=== PATIENT | female | born 1935 | race Caucasian/White ===

== ENCOUNTER → 2018-11-29 12:11 | Outpatient (CLI) | payer MEDICARE, SELFPAY ==
--- NOTE | 2018-11-29 12:14 | US_ITS ---
STUDY: ULTRASOUND OF THE FEMALE PELVIS - COMPLETE REASON FOR EXAM: Female, 83 years old. LMP: TECHNIQUE: Transabdominal and Transvaginal TECHNICAL QUALITY: Adequate. COMPARISON: None. FINDINGS: The uterus is anteverted and is in a midline position. The uterus measures 6.9 x 4.2 x 3.0 cm. Normal uterine cervix. The endometrium measures 2.7 mm in thickness, and is hyperechoic. There is no demonstrated endometrial mass. There are myometrial calcifications. I.U.D. - The patient does not have an I.U.D. Ovaries are not identified. There is NO free fluid. US/Pelvic (Non ) IMPRESSION: Normal endometrium. There is NO fluid. There are scattered myometrial calcifications. There is NO discrete mass. The ovaries are not identified. There is NO free pelvic fluid. Electronically Signed: Keyur Montes MD at 7:43 EST , Service support ,
--- NOTE | 2018-11-29 12:15 | US_ITS ---
STUDY: ULTRASOUND OF THE FEMALE PELVIS - COMPLETE REASON FOR EXAM: Female, 83 years old. LMP: TECHNIQUE: Transabdominal and Transvaginal TECHNICAL QUALITY: Adequate. COMPARISON: None. FINDINGS: The uterus is anteverted and is in a midline position. The uterus measures 6.9 x 4.2 x 3.0 cm. Normal uterine cervix. The endometrium measures 2.7 mm in thickness, and is hyperechoic. There is no demonstrated endometrial mass. There are myometrial calcifications. I.U.D. - The patient does not have an I.U.D. Ovaries are not identified. There is NO free fluid. US/Transvaginal Non- IMPRESSION: Normal endometrium. There is NO fluid. There are scattered myometrial calcifications. There is NO discrete mass. The ovaries are not identified. There is NO free pelvic fluid. Electronically Signed: Keyur Montes MD at 7:43 EST , Service support ,
== END ==
PROVIDERS: Family Provider Internal Medicine; PCP Internal Medicine; Referring Provider Urology; Visit Provider Urology
DX: N95.0 Postmenopausal bleeding (principal)
CPT/HCPCS: 76830; 76856

== ENCOUNTER → 2019-03-30 09:03 | Outpatient (CLI) | payer SELFPAY, MEDICARE ==
[2017-08-12 05:45] VITALS: BMI 29.9
[2019-03-28 10:08] LABS: Mucous, Urine 0 SEEN /hpf (<or=2+); Red Blood Cells-Urine 0 SEEN /hpf (0-5)
[2019-03-28 10:33] LABS: Hemoglobin 14.1 g/dl (12.0-15.0); Mean Corp Hgb Conc 33.6 g/gl (32-36); Mean Corpuscular Hgb 29.6 pg (27.0-32.0); Mean Corpuscular Volume 88.1 fL (81-99); Mean Platelet Vol. 8.5 fl (6.2-12.0); Platelet Count 234 K/mm3 (150-450); RBC Distribution Width SD 40.7 fl (35.1-43.9); Red Blood Count 4.77 M/mm3 (4.2-5.4); White Blood Count 6.4 K/mm3 (4.4-11.0)
[2019-03-28 10:40] LABS: Scan Indicated on CBC? Y/N NO
[2019-03-28 10:47] LABS: Color, Urine Yellow (Yellow); Glucose, Dipstick Normal (Normal); Ketone-Dipstick Negative (Negative); Leukocyte Esterase-Dipstick 100 /ul (Negative); Nitrite-Dipstick Negative (Negative); Occult Blood-Urine Negative /ul (Negative); Protein-Dipstick 15 mg/dl (Negative); Urine Clarity Sl. Cloudy (Clear); Urine Urobilinogen Normal (Normal); Urine pH 6.5 (5.0 - 8.0)
[2019-03-28 10:49] LABS: Urine Bilirubin Dipstick 1 mg/dL (Negative)
[2019-03-28 10:53] LABS: Squamous Epithelial Cells - UA 0-5 SEEN /hpf (5-10)
[2019-03-28 10:54] LABS: ALB/GLOB Ratio 1.1 RATIO (0.9-2.4); AST(SGOT) 17 U/L (15-37); Alanine Aminotransfer ALT/SGPT 18 U/L (13-56); Albumin, Serum 3.8 g/dL (3.2-5.0); Alkaline Phosphatase 87 U/L (45-117); Anion Gap 4 (5-15); BUN 15 mg/dL (7-18); BUN/Creat Ratio 15.1 RATIO (10-20); Bacteria 1+ /hpf (None Seen); Calcium,Total 8.6 mg/dL (8.5-10.1); Chloride 103 mmol/L (98-107); Cholesterol 210 mg/dL (200); EST Glomerular Filtration Rate 57 mL/min (>60); Est Glom Filt Rate - Afr Amer 69 mL/min (>60); Globulin 3.5 g/dL (2.2-4.2); Glucose 93 mg/dL (74-106); High Density Lipoprotein 58 mg/dL; Protein, Total 7.3 g/dL (6.4-8.2); Sodium Level 137 mmol/L (136-145); Thyroid Stim Hormone (TSH) 3.13 uIU/mL (0.358-3.74); Triglycerides 90 mg/dL; Very Low Density Lipoprotein 18 mg/dL (5-40); White Blood Cells 10-25 SEEN /hpf (0-5)
[2019-03-28 11:09] LABS: Hemoglobin A1c 5.5 % (4.2-6.3)
[2019-03-28 11:16] LABS: Homocysteine 11.5 umol/L (3.2-10.7)
--- NOTE | 2019-03-30 09:15 | EKG12_ITS ---
Test Reason : EXEC PHYS Blood Pressure : / mmHG Vent. Rate : 063 BPM Atrial Rate : 063 BPM P-R Int : 152 ms QRS Dur : 098 ms QT Int : 416 ms P-R-T Axes : 064 -24 -30 degrees QTc Int : 425 ms Normal sinus rhythm with sinus arrhythmia Nonspecific ST and T wave abnormality Abnormal ECG Confirmed by BETTY CARRILLO, CODEY ([id number]), editorial director RAHEEL BRUNNER ([id number]) on 04/03/2019 1:45:46 PM Referred By: Melvi Poole Confirmed By:CODEY HERNÁNDEZ MD
--- NOTE | 2019-03-30 19:36 | BFS_ITS ---
Reason For Study: Screening Carotid Duplex Ultrasound Abdominal Aorta The right maximum ICA velocity is 94.3/36.9 cm/s. The maximal outside diameter of the proximal aorta The left maximum ICA velocity is 121.4/44.5 cm/s. measures 2.0 x 2.05 cm in the cross-sectional The right ECA velocity is less than 125 cm/s. axis. The left ECA velocity is less than 125 cm/s. The maximal outside diameter of the proximal aorta There is insignificant plaque formation noted on measures 2.02 cm in the longitudinal axis. the right side. There is insignificant plaque formation noted on the left side. Interpretation Summary Normal carotid artery screening (0 to 15% narrowing). Normal aortic ultrasound exam. Performed By: Tessa Fraser RVT
[2019-04-06 12:25] LABS: HPV Reflexed? NOT INDICATED
== END ==
PROVIDERS: Family Provider Internal Medicine; PCP Internal Medicine; Referring Provider Internal Medicine; Visit Provider Internal Medicine
DX: Z00.00 Encounter for general adult medical examination without abnormal findings (principal); Z13.9 Encounter for screening, unspecified; Z78.0 Asymptomatic menopausal state
CPT/HCPCS: 36415; 80053; 80061; 81001; 82306; 83036; 83090; 84443; 85027; 88175; 93005; G0145

== ENCOUNTER 2019-08-14 07:42 | Day surgery (SDC) | payer MEDICARE, SELFPAY ==
--- NOTE | 2019-07-17 02:36 | HP_ITS ---
Intake Vital Signs 07/17/19 Body Mass Index (BMI) 29.7 07/17/19 Height 5 ft 07/17/19 Weight: 149 lb 07/17/19 Body Mass Index (BMI) 29.0 07/17/19 Blood Pressure 108/65 07/17/19 Blood Pressure Location Rt brachial 07/17/19 Blood Pressure Position Sitting 07/17/19 Respiratory Rate 18 07/17/19 Pulse Rate 56 L 07/17/19 Pulse Source Monitor 07/17/19 Temperature 98.4 F 07/17/19 Pulse Ox 95 07/17/19 Oxygen Delivery Method room air Intake Visit Reasons: C-Scope Consult Chief Complaint: c-scope repeat [employer] Stock Clerk Required: No Is patient in pain?: No Allergies ibuprofen Allergy (Verified 07/17/19 14:09) Rash Penicillins Allergy (Verified 07/17/19 14:09) Rash Medications Citalopram [Celexa] 20 mg PO DAILY 08/18/16 [History Confirmed 07/17/19] Lactobacillus Acidophilus 1 cap PO DAILY 08/18/16 [History Confirmed 07/17/19] Trazodone HCl 50 mg PO QHS 08/18/16 [History Confirmed 07/17/19] Melatonin/Pyridoxine [Melatonin 5 mg Tablet] 1 ea PO QHS 08/05/17 [History Confirmed 07/17/19] mirabegron ER 50 mg tablet,extended release 24 hr 50 mg PO DAILY 03/29/19 [History Confirmed 07/17/19] ergocalciferol (vitamin D2) 50,000 unit capsule 50,000 unit PO Q2W cap 07/17/19 [History Confirmed 07/17/19] polyethylene glycol 3350 17 gram oral powder packet 17 g PO DAILY 07/17/19 [History Confirmed 07/17/19] [facility], [facility] Medical History (Updated 07/17/19 @ 14:34 by Heber Reed MD) Personal history of colonic polyps (Chronic) Irregular heart rate (Chronic) Interstitial cystitis (Chronic) Colitis (Resolved) Wears glasses (Chronic) Kidney disease (Chronic) GERD (gastroesophageal reflux disease) (Chronic) H/O emotional problems (Chronic) UTI (urinary tract infection) (Resolved) Surgical History (Updated 07/17/19 @ 14:07 by Sima Mariscal) History of tubal ligation (Acute) History of bilateral cataract extraction (Acute) History of cholecystectomy (Acute) History of colonoscopy (Acute) History of hernia repair (Acute) Family History (Updated 07/17/19 @ 14:08 by Sima Mariscal) Mother Depression Arthritis Grandmother Depression Brother Depression Diabetes Social History (Updated 07/17/19 @ 14:36 by Heber Reed MD) Smoking Status: Never smoker alcohol intake: never substance use type: does not use what type of physical activity do you participate in: other details: Water Aerobics HPI HPI HPI: CAROLYN RAYMUNDO, is a 83 F who presents to the office today for HPI HPI Surgical H&P: Yes HPI: CAROLYN RAYMUNDO, is a 83 F who presents to the office today for surgical consultation regarding personal history of colon polyps. The patient's most recent colonoscopy was April 25, 2008. That was performed by Dr. Edwar Murray. The patient states that 5 years prior she had had a colon polyp removed. On her most recent exam there were no additional polyps identified. Recommendations at that time per Dr. Edwar Murray was for follow-up colonoscopy at 5 years. The patient remembers being told that she should follow-up with a colonoscopy at 10 years. She states that gradually over the years her bowel habits have changed stool slightly smaller in caliber. But she otherwise enjoys good health. She denies abdominal pain bright red blood per rectum or melena. She has not had any an unexpected weight loss. She otherwise enjoys good health. ROS General General: No weight change, appetite, fatigue, colon cancer, breast cancer or weakness HEENT HEENT: Yes eye surgery; no difficulty swallowing, eye injury, swollen glands or hoarseness Endo Endocrine: No thyroid disease, diabetes mellitus, thyroid cancer, Hair loss, heat intolerance or cold intolerance Skin Skin: No rash or changing moles Breast Breast: No left breast lump, right breast lump, nipple discharge, breast pain, abnormal mammogram, abnormal US or breast enlargement Musc Musculoskeletal: No back problems, arthritis, rheumatoid arthritis, gout or joint pain Cardio Cardiovascular: No murmur, pacemaker, heart disease, atrial fibrillation, high blood pressure, heart attack, heart stent, palpitations, shortness of breat with exertion or chest pain Psych Psychiatric: Yes anxiety; no depression or hearing voices Resp Respiratory: No shortness of breath, No sleep apnea, No cough, No COPD, No asthma, No emphysema, No wheezing Gastro Gastrointestinal: No abdominal pain, No nausea or vomiting, No diarrhea, No constipation, No blood in stool, No acid reflux, No hemorrhoids, No ulcers, No gallbladder problem, No black,tarry stools Kana Hematologic: No blood thinners, No blood disorders, No bleeding, No anemia, No blood clots Neuro Neurologic: No system reviewed and no additional complaints, except as docu, No as per HPI, No abnormal walking, No abnormal hearing, No abnormal movements, No abnormal speech, No behavioral changes, No burning sensations, No confusion, No seizure-like activity, No unsteadiness, No dizziness, No localized weakness, No frequent falls, No headache(s), No lack of coordination, No loss of vision, No memory loss, No numbness, No other visual disturbances, No radiating pain, No restless legs, No sensory deficit, No fainting, No tingling, No tremor(s), No weakness, No other Exam Const General: cooperative, healthy appearing, no acute distress Nutritional Appearance: average body habitus Orientation: alert, awake, oriented x3 HENMT Head: normal to inspection Chest Breast Palpation: No nipple discharge Resp Effort & Inspection: normal respiratory effort Auscultation: clear to auscultation bilaterally Cardio Rate: regular rate Rhythm: regular rhythm Heart Sounds: no murmurs GI Palpation: no hepatosplenomegaly Auscultation: normal bowel sounds Skin General: no rashes or lesions noted Neuro Cognition: normal cognition Extrem General: no calf tenderness bilaterally Psych Affect: normal affect Assessment & Plan Problems 1. Personal history of colonic polyps Z86.010 Plan 83-year-old female who enjoys a very high quality of life with a personal history of colon polyps. Her most recent colonoscopy was 2007. We have discussed the technique, benefit, risk and alternatives of colonoscopy with possible biopsy or polypectomy as indicated. She has had an opportunity to ask and have questions answered. She elects to schedule and proceed as noted. She is aware of the increased risk for colonoscopic intervention and octogenarians. We will schedule and proceed at her discretion. She is not on any anticoagulation other than fish oil. Primary care physician is Dr. Cady Reed M.D., F.A.C.S. Coding Level of Care Code Off vis,new,level 3 Diagnoses Personal history of colonic polyps Z86.010 07/17/19 1631 <Electronically signed by Heber lau MD> Date _ Heber Reed MD I have re-examined the patient. There are no clinical changes since date of exam.
[2019-07-17 14:13] VITALS: BMI 29.7
[2019-08-14] VITALS (11 sets, daily range): BP systolic 88–161; BP diastolic 49–87; PULSE 57–76; RESP 16; TEMP 36.8–37.1; O2SAT 93–100; BMI 28.8
[2019-08-14] MEDS: Lactated Ringers 1,000 ML 100 ML IV (08:33)
[2019-08-14] MEDS: Midazolam 5 MG/ML Syringe (09:19)
--- NOTE | 2019-08-14 23:36 | OP.ENDO_ITS ---
08/14/2019 She Lazar [address] [phone] Re : Colonoscopy procedure for Janette Alvarado Dear Dr. Lazar This procedure was performed on Wednesday, August 14, 2019. My impressions and recommendations are as follows: Impressions : - Non-thrombosed internal hemorrhoids and internal hemorrhoids that prolapse with straining, but require manual replacement into the anal canal (Grade III) found on digital rectal exam. - Diverticulosis in the sigmoid colon and in the descending colon. - The examination was otherwise normal. - No specimens collected. Recommendations : - Discharge patient to home. - Resume previous diet. - Continue present medications. - Repeat colonoscopy in 10 years for screening purposes. My findings are described in the full procedure note, which is enclosed. If I can be of further assistance, please feel free to contact me at Doctor phone number(s): Work: . Sincerely, Heber Reed MD 08/14/2019 9:49:57 AM This report has been signed electronically.
== END 2019-08-14 10:44 | disposition home or self-care (01) ==
LOC: EN 07:43 → AC 07:44
PROVIDERS: Family Provider Internal Medicine; PCP Internal Medicine; Referring Provider Internal Medicine; Visit Provider Surgery
PROC: 0DJD8ZZ Inspection of Lower Intestinal Tract, Via Natural or Artificial Opening Endoscopic (ICD-10-PCS; CPT 45378; principal; 2019-08-14 08:55)
DX: Z12.11 Encounter for screening for malignant neoplasm of colon (principal); K57.30 Diverticulosis of large intestine without perforation or abscess without bleeding; K64.2 Third degree hemorrhoids; N30.10 Interstitial cystitis (chronic) without hematuria; K21.9 Gastro-esophageal reflux disease without esophagitis; F41.9 Anxiety disorder, unspecified; Z79.899 Other long term (current) drug therapy; Z86.010 Personal history of colon polyps; Z88.0 Allergy status to penicillin
CPT/HCPCS: G0105; 99152; 99153; J7120

== ENCOUNTER → 2020-12-22 16:48 | Outpatient (CLI) | payer MEDICARE, SELFPAY ==
[2019-08-14 08:07] VITALS: BMI 28.8
--- NOTE | 2020-12-22 16:49 | CT_ITS ---
STUDY: CT ABDOMEN AND PELVIS WITH AND WITHOUT CONTRAST REASON FOR EXAM: Female, 85 years old. Hematuria. Scheduled for hysterectomy and bladder lift surgery RADIATION DOSAGE (If Supplied By Facility): CTDIvol = ( 16.82 ) mGy, DLP = ( 2523.42 ) mGycm TECHNIQUE: Transaxial images were obtained from the dome of the diaphragm to the symphysis pubis without oral contrast. IV 100mL Isovue-300 was administered. Sagittal and coronal images were reconstructed. Individualized dose optimization techniques were used for this CT. COMPARISON: None. FINDINGS: The visualized lung bases are unremarkable. The visualized portions of the heart are within normal limits. Normal liver. There is non-visualization of the gallbladder, which may be secondary to either contraction or a prior cholecystectomy. Normal spleen. Normal pancreas. Normal bilateral adrenal glands. Normal right kidney. Normal left kidney. Normal visualized ureters. Stomach is collapsed but otherwise grossly unremarkable. Normal small intestine. Sigmoid diverticulosis without acute inflammatory change. The remainder of the colon is unremarkable. The appendix is visualized and appears normal. There is diffuse atherosclerotic calcification of the abdominal aorta, without a demonstrated aneurysm. Normal inferior vena cava. Normal retroperitoneum. Benign bladder is nondistended. There is diffuse stranding about the perivesical fat with thickening of the bladder wall. Uterus appears small in size. There is increased vascularity of the left broad ligament suggesting pelvic congestion. There is no adnexal mass. There is no pelvic lymphadenopathy. No free air or free fluid is seen within the peritoneal cavity. Normal abdominal wall. There are diffuse degenerative changes of the visualized lumbar spine. CT/CT Abd/Pelvis W/WO Contrast IMPRESSION: 1. Thickened nondistended urinary bladder with stranding of the perivesical fat. Findings suggest cystitis. 2. Normal kidneys and ureters. 3. Mild left pelvic congestion. 4. Degenerative changes of the lumbar spine. 5. Otherwise normal CT of the abdomen and pelvis. Electronically Signed: Lorenzo Martinez DO at 23:52 EST Tel [phone], Service support ,
== END ==
PROVIDERS: PCP Internal Medicine; Referring Provider Urology; Visit Provider Urology
DX: R31.9 Hematuria, unspecified (principal)
CPT/HCPCS: 74178; Q9967

== ENCOUNTER → 2020-12-23 12:46 | Outpatient (CLI) | payer MEDICARE, SELFPAY ==
[2019-08-14 08:07] VITALS: BMI 28.8
--- NOTE | 2020-12-23 12:50 | ECHOCS_ITS ---
Reason For Study: PRE-OP, ABN EKG Procedure This was a 2D Doppler, Color Flow transthoracic echocardiogram. The study was technically difficult. Contrast injection was performed. Exam performed in department. Left Ventricle Normal LV size. Left ventricular systolic function is normal. The estimated ejection fraction is 55 %. Stage 1 diastolic dysfunction. No regional wall motion abnormalities noted. Right Ventricle Normal RV size. Normal systolic function. Atria Normal left atrium. Normal right atrium. Mitral Valve There is mild mitral annular calcification. Mild (1+) eccentric mitral valve insufficiency. Tricuspid Valve Normal tricuspid valve. Mild (1+) tricuspid valve insufficiency. Pulmonary artery systolic pressure is 32 mmHg. Aortic Valve Trisinus/trileaflet aortic valve. Pulmonic Valve Normal pulmonic valve. Great Vessels Normal aortic root. The pulmonary artery is normal size. Normal inferior vena cava. Pericardium/Pleural No pericardial effusion. Medication 22 gauge I.V. with prn adaptor inserted into right arm. Diluted definity 4.0ml given slow IV push to enhance endocardial definition. MMode/2D Measurements & Calculations LVIDd: 5.3 cm IVSd: 0.77 cm Ao root diam: 3.2 cm LVIDs: 4.2 cm LVPWd: 0.77 cm RVDd: 3.4 cm FS: 21.4 % LAV(MOD-bp): 45.5 ml LA A4 area: 18.3 cm2 LA dimension(2D): 3.8 cm LAV(MOD-bp) Indexed: 27.6 ml/m2 LAV(MOD-sp2): 42.3 ml LAV(MOD-sp4): 48.9 ml RA A4 area: 17.2 cm2 Time Measurements MV dec time: 0.24 sec Doppler Measurements & Calculations MV E max toan: 74.4 cm/sec Lat Peak E' Toan: 6.8 cm/sec Med Peak E' Toan: 5.6 cm/sec MV A max toan: 86.1 cm/sec E/E' lat: 10.9 E/E' med: 13.4 MV E/A: 0.86 MV V2 max: 87.0 cm/sec Ao V2 max: 119.2 cm/sec LV V1 max: 105.6 cm/sec MV max P.0 mmHg Ao max P.7 mmHg LV V1 max P.5 mmHg MV V2 mean: 54.7 cm/sec MV mean P.4 mmHg MV V2 VTI: 27.1 cm PA V2 max: 85.4 cm/sec PI end-d toan: 106.1 cm/sec TR max toan: 265.1 cm/sec TR max P.1 mmHg Interpretation Summary Normal LV size. Left ventricular systolic function is normal. The estimated ejection fraction is 55 %. Stage 1 diastolic dysfunction. Pulmonary artery systolic pressure is 32 mmHg. Contrast injection was performed. Ordering Physician: Nader Chinchilla Referring Physician: BHAVIN NEWELL Performed By: Meena Jimenez, MARYCHUY, RVT
== END ==
PROVIDERS: PCP Internal Medicine; Referring Provider Internal Medicine Cardiovascular Disease; Visit Provider Internal Medicine Cardiovascular Disease
DX: R06.02 Shortness of breath (principal); R06.00 Dyspnea, unspecified
CPT/HCPCS: 93306; Q9957; A4216; C8929

== ENCOUNTER → 2020-12-24 06:05 | Outpatient (CLI) | payer MEDICARE, SELFPAY ==
[2020-12-23 11:50] VITALS: BMI 31.1
--- NOTE | 2020-12-24 13:14 | STRESSREP_ITS ---
Stress Test Report Pharmacologic myocardial perfusion stress test. 85-year-old lady with a history of abnormal EKG. Stress protocol: Resting EKG demonstrates normal sinus rhythm with a rate of 62 bpm normal intervals are noted resting blood pressure is 128/80 mmHg. 0.4 mg of regadenoson was infused per usual protocol followed by rapid venous saline flush injection continuous monitoring engineer was performed. At rest T wave inversions were noted in leads II, III and aVF V4 V5 and V6. These persisted throughout the infusion. There were no ST changes noted which were concerning for ischemia. The final blood pressure was 120/60 mmHg. Myocardial perfusion protocol. 11.1 mCi of technetium 99m sestamibi was injected at rest. 0.4 mg of regadenoson was infused per usual protocol. Peak infusion 33.2 mCi of technetium 99m sestamibi was injected stress images were obtained stress and rest images were reconstructed and compared in the short axis vertical long horizontal long axis. Gated images were also obtained Perfusion SPECT analysis: Review of the stress images demonstrate normal uptake of tracer noted in all areas of the myocardium the resting images similar demonstrate normal uptake of tracer noted in all areas of the myocardium. No reversibility is noted suggest ischemia no previous infarct is noted. Gated SPECT analysis: The gated ejection fraction is noted to be 77% Conclusion: Normal pharmacologic myocardial perfusion stress test. Preserved ejection fraction.
== END ==
PROVIDERS: PCP Internal Medicine; Referring Provider Internal Medicine Cardiovascular Disease; Visit Provider Internal Medicine Cardiovascular Disease
DX: R94.31 Abnormal electrocardiogram [ECG] [EKG] (principal)
CPT/HCPCS: 78452; 93017; A9500; A4216; J2785

== ENCOUNTER 2020-12-25 12:34 | Observation (INO) | payer MEDICARE, SELFPAY ==
[2019-08-14 08:07] VITALS: BMI 28.8
--- NOTE | 2020-12-19 15:37 | EKG12_ITS ---
Test Reason : PREOP Blood Pressure : / mmHG Vent. Rate : 068 BPM Atrial Rate : 068 BPM P-R Int : 168 ms QRS Dur : 104 ms QT Int : 414 ms P-R-T Axes : 053 -27 -26 degrees QTc Int : 440 ms Normal sinus rhythm with sinus arrhythmia ST & T wave abnormality, consider anterolateral ischemia Abnormal ECG Confirmed by BETTY CARRILLO, CODEY ([id number]), film or videotape editor MT PEARL ([id number]) on 12/23/2020 10:53:23 AM Referred By: eKyona Vega Confirmed By:CODEY HERNÁNDEZ MD
[2020-12-19 17:32] LABS: Hematocrit 38.4 % (37-47); Hemoglobin 12.5 g/dL (12.0-15.0); Mean Corp Hgb Conc 32.6 g/dL (32-36); Mean Corpuscular Hgb 29.9 pg (27.0-32.0); Mean Corpuscular Volume 91.9 fL (81-99); Mean Platelet Vol. 9.3 fl (6.2-12.0); Platelet Count 202 K/mm3 (150-450); RBC Distribution Width CV 12.4 % (11.6-14.6); RBC Distribution Width SD 41.4 fl (35.1-43.9); Red Blood Count 4.18 M/mm3 (4.2-5.4); White Blood Count 5.4 K/mm3 (4.4-11.0)
[2020-12-19 17:48] LABS: Anion Gap 4 (5-15); BUN 18 mg/dL (7-18); BUN/Creat Ratio 19.1 RATIO (10-20); Calcium,Total 8.9 mg/dL (8.5-10.1); Chloride 105 mmol/L (98-107); Creatinine, Serum 0.94 mg/dL (0.55-1.02); EST Glomerular Filtration Rate 60 mL/min (>60); Est Glom Filt Rate - Afr Amer 73 mL/min (>60); Glucose 99 mg/dL (74-106); Potassium 4.2 mmol/L (3.5-5.1); Sodium Level 139 mmol/L (136-145)
[2020-12-23 11:50] VITALS: BMI 31.1
--- NOTE | 2020-12-23 12:39 | PCM.HP.BLA ---
History and Physical Date of Admission: 12/23/20 Pre-Op History and Physical ? HPI: The patient is a 85 year old female presenting for discussion regarding upcoming surgery. Pt was scheduled to have surgery with Dr. German and Dr. Melton but due to Dr. German no longer being available I will resume care. ? She is scheduled for TVH With possible BSO and then A&P repair with Sacrospinous ligament fixation, sling and Cysto for complete uteerovaginal prolapse and incontinence. on 12/25/20. Procedure discussed along with risks, benefits and complications. Other alternatives discussed for management. Consent form signed? Yes. ? ? PAST MEDICAL HISTORYExpand by Default PAST MEDICAL HISTORY Diagnosis Date ? Abnormal glandular Papanicolaou smear of cervix ? ? Abn. Pap smear (cervix) ? Benign neoplasm of colon ? ? Disorder of bone and cartilage, unspecified ? ? Diverticulosis of colon (without mention of hemorrhage) ? ? Diverticulosis ? Interstitial cystitis ? ? Irritable bowel syndrome ? ? Irritable bowel ? Other and unspecified hyperlipidemia ? ? Other specified gastritis ? ? ? PAST SURGICAL HISTORYExpand by Default PAST SURGICAL HISTORY Procedure Laterality Date ? COLONOSCOP W/ OR W/O [facility] SPEC ? 02/28/2003 ? Colonoscopy ? COLONOSCOP W/ OR W/O [facility] SPEC ? 04/25/2008 ? Colonoscopy ? EGD W/O OR W/BRUSH/WASH ? 07/31/1999 ? EGD ? EGD W/O OR W/BRUSH/WASH ? 10/31/2017 ? EGD ? LAP CHOLECYSTECT/CHOLANGIOGRAPHY ? 08-18-16 ? LIGATE FALLOPIAN TUBE ? ? ? Tubal ligation ? PAST SURGICAL HISTORY OF ? ? ? cystoscopy ? PAST SURGICAL HISTORY OF ? 07/2017 ? hernia surgery ? ? ? CURRENT MEDICATIONSExpand by Default Current Outpatient Medications Medication Sig Dispense Refill ? omeprazole (PRILOSEC) 20 mg capsule Take 1 capsule by mouth daily before breakfast. 1/2 hr before meal. 14 capsule 0 ? estradiol (ESTRACE) 0.01 % (0.1 mg/gram) vaginal cream Use vaginally one time a week. ? ? ? ergocalciferol 50,000 unit capsule (VITAMIN D2, DRISDOL) Take 1 capsule by mouth one time a week. 12 capsule 3 ? famotidine (PEPCID) 20 mg tablet Take 1 tablet by mouth at bedtime as needed. 30 tablet 5 ? polyethylene glycol 3350 (MIRALAX, GLYCOLAX) 17 gram/dose powder Take 17 g by mouth once daily. 235 g 5 ? mirabegron (MYRBETRIQ) 50 mg Tb24 Take by mouth. ? ? ? conjugated estrogens (PREMARIN) vaginal cream pea-sized amount to lower vagina qhs twice weekly 1 Tube 0 ? citalopram (CELEXA) 20 mg tablet Take 1 tablet by mouth once daily. (Patient taking differently: Take 30 mg by mouth once daily. ) 30 tablet 11 ? traZODone 50 mg tablet Take 1 tablet by mouth daily at bedtime. (Patient taking differently: Take 100 mg by mouth daily at bedtime. ) 30 tablet 11 ? COMPOUNDED PRESCRIPTION Take one capsule of 1000 mg [place] Red Fish Oil. ? ? ? Lactobacillus Acidoph-Pectin (ACIDOPHILUS-PECTIN) ORAL Cap Take by mouth as needed. ? 0 ? Bismuth Subsalicylate (PEPTO-BISMOL) 262 mg tab Take 2 tablets by mouth four times daily for 14 days. This will turn your stools black. 112 tablet 0 ? Melatonin 5 mg cap Take by mouth. ? 0 ? No current facility-administered medications for this visit. ? ? ALLERGIES: Ibuprofen and Penicillins ? PERSONAL HISTORY: SOCIAL HISTORYExpand by Default Social History ? Tobacco Use ? Smoking status: Former Smoker ? ? Quit date: 11/28/1966 ? ? Years since quittin.0 ? Smokeless tobacco: Never Used Substance Use Topics ? Alcohol use: No ? Drug use: No ? FAMILY HISTORY: FAMILY HISTORYExpand by Default FAMILY HISTORY Problem Relation Age of Onset ? Diabetes Brother ? ? ? REVIEW OF SYMPTOMS: negative except as noted above PHYSICAL EXAMINATION: ? VITALS: Blood pressure 122/74, height 4' 11.65 (1.515 m), weight 154 lb (69.9 kg). ? GENERAL: The patient is well nourished, well hydrated in no acute distress. , The patient is oriented to time, place, and person. NECK: full range of motion GENITALIA: deferred WET PREP: Not indicated ? IMPRESSION: 85yo with complete uterovaginal prolapse and incontinence ? PLAN: Combine procedure - TVH with possible BSO performed by Myself and Dr. Melton performing the A&P, Ligament suspension, sling and Cysto. ? Pt has been counseled on risks/benefits and alternatives of surgery including but not limited to anesthesia, bleeding, infection, injury to pelvic structures including bowel, bladder, ureters and vessels. Pt wishes to proceed with surgery at this time. ? [facility] protocol reviewed Dr. Melton to arrange for discharge and Medications after dc home. ? ? I have reviewed and updated past medical and surgical history, medications and allergies Keyona Lee MD Procedure Criteria Procedure Type: Elective COVID Risk Discussion: The surgeon/proceduralist and patient have discussed in detail the risk of exposure to and/or potential harm posed by the COVID-19 virus with having a surgery/procedure at this time versus the risk of delaying the surgery/procedure. It is not possible to know either the risk of delaying the surgery or procedure or chance of getting an infection with perfect accuracy, but a joint decision was made between the patient and the surgeon/proceduralist to proceed at this time with the scheduled surgery/procedure as indicated on the consent form.
[2020-12-25] VITALS (13 sets, daily range): BP systolic 101–133; BP diastolic 43–62; PULSE 58–85; RESP 12–18; TEMP 36.6–37.5; O2SAT 92–100; BMI 30.3; BMI 28.3
[2020-12-25] MEDS: Phenazopyridine 95 MG Tablet 190 MG PO (08:57)
[2020-12-25] MEDS: Lactated Ringers 1,000 ML 40 ML IV (08:57)
[2020-12-25] MEDS: Acetaminophen 500 MG Tablet 1000 MG PO (08:57)
[2020-12-25] MEDS: Gabapentin 600 MG Tablet PO (08:58)
[2020-12-25] MEDS: Celecoxib 200 MG Capsule PO (08:58)
[2020-12-25] MEDS: Scopolamine 1mg/72hr Patch 1 PATCH TD (08:58)
[2020-12-25] MEDS: Enoxaparin 40 MG/0.4 ML Syringe SC (08:59)
--- NOTE | 2020-12-25 09:03 | OP.PCM_ITS ---
Problem List (1) Stress incontinence Status: Acute (2) Uterovaginal prolapse, complete Status: Chronic Report of Operation Date of Procedure: 12/25/20 Pre-Operative Diagnosis: uterovaginal prolapse, stress incontinence Post-Operative Diagnosis: same, Hunner's Ulcer Surgery/Procedure Performed:: anterior repair, midurethral sling insertion, cystoscopy with bladder biopsy and fulguration and bilateral ureteral catheterization master fire control technician: Nikolay Type of Anesthesia:: General Specimen's removed: bladder biopsy, consistent with Hunner's Ulcer Description of Procedure: The patient is an 85-year-old female with interstitial cystitis and pelvic organ prolapse, stress incontinence who presents for surgical intervention. Informed consent was obtained including a discussion of the risks of COVID-19 and the fact that the prolapse repair would not be likely to necessarily improve the interstitial cystitis. The patient was taken to the operating room and placed on the operating room table. Anesthesia monitored the head, neck, airway, IV access and vital signs throughout the case. Once anesthesia was appropriate ministered the patient was placed into dorsal lithotomy position and was prepped and draped in usual sterile fashion. A Buchanan catheter was inserted and the bladder was drained. Dr. Lee proceeded with her portion of the procedure and closed the cuff line transversely as requested. At this time it was very evident that the patient had very minimal vault length remaining. A cystourethroscopy was then performed through the urethra under direct visualization. There was no evidence of injury to the urinary bladder or ureters as there were bilateral ureteral jets observed. In the dome of the bladder there was one area of ulceration consistent with a Hunner's ulcer fitting with the patient's interstitial cystitis and bladder thickening on her CT scan. With the remaining vaginal length, I was unable to even palpate the ischial spine or the sacrospinous ligament. The vaginal submucosa was injected with vasopressin for hydrostatic dissection. A vertical midline incision approximately 1.5 cm in length was made. Dissection was very difficult, patient had multiple large blood vessels. Her vaginal mucosa was very thin and continued to tear. The pubocervical fascia was identified and brought together in interrupted fashion with 2-0 Vicryl suture. The midline incision was closed using running interlocking 2-0 Vicryl. The mid urethra was injected submucosally for hydrostatic dissection and a vertical midline 1.5 cm incision was made. Dissection was performed on either side of the urethra with care being taken to avoid entrance into the urethra or the vaginal mucosa. The Altis mid urethral sling was inserted using the trochars into the obturator complexes bilaterally. The sling lay flat against the urethra without tension. The tensioning suture was cut and the incision was closed using running interlocking 2-0 Vicryl. A cystourethroscopy was then performed and bilateral ureteral orifices were intubated with a whistle-tip catheter. There is no evidence of obstruction or injury to either ureter and there were urine jets observed bilaterally. At the dome of the bladder, the ulceration identified was biopsied with flexible biopsy forceps and the area was fulgurated for hemostatic control and tissue treatment. At this time the bladder was emptied and the Buchanan catheter was replaced. The vagina was packed with Premarin cream and vaginal packing. She was awakened and taken to the recovery room in good condition. Grafts/Implants Used: Altis - Complications none - Admit VTE Documentation VTE Present on Admission: Yes VTE Mechan Device Prophylaxis: SCD's VTE Pharm Prophylaxis ordered?: Yes
--- NOTE | 2020-12-25 09:05 | DCINST_ITS ---
Discharge Diet: No Restrictions Discharge Activity: May not drive while taking narcotic pain medications., May Shower - no tub bathing, hot tubs or swimming. No lifting over 5 pounds, no exercise, no strenuous activity, no sexual activity, - - no lifting over 5 pounds, no exercise, no vacuuming, no tub bathing, swimming or hot tubs, no sexual activity May resume sexual activity in: 8 weeks Call your doctor if your incision/area has: Continuous Slow Oozing, Sudden Increased Bleeding, Increased Pain/ Swelling, Foul Smelling Discharge Call your doctor if you observe: Fever of 101 or Higher, Inability to urinate, Inability to have a bowel movement, Calf discomfort, Uncontrolled pain Additional Instructions: continue vaginal estrogen cream Allergies/Adverse Reactions: Allergies ibuprofen Allergy (Verified 12/25/20 08:28) Rash Penicillins Allergy (Verified 12/25/20 08:28) Rash Medications to take at Discharge Citalopram [Celexa] 20 mg PO DAILY 08/18/16 Lactobacillus Acidophilus 1 cap PO QODAY 08/18/16 Trazodone HCl 50 mg PO QHS 08/18/16 estradiol 1 g VAGINAL QWEEK 12/22/20 Acetaminophen/Codeine #3 [Tylenol#3] 1 - 2 tab PO Q6H PRN PRN 5 Days #20 tab 12/26/20 Smz/Tmp Ds [Bactrim Ds] 1 tab PO BIDCM 2 Days #4 tab 12/26/20 The following prescriptions were given: Smz/Tmp Ds [Bactrim Ds] 1 tab PO BIDCM 2 Days #4 tab Transmission Status: Pending to [id number] Acetaminophen/Codeine #3 [Tylenol#3] 1 - 2 tab PO Q6H PRN PRN 5 Days #20 tab PRN Reason: Pain Score 6-10/10 Transmission Status: Received by [id number] Primary Care Physician: She Lazar MD [Primary Care Provider] - Test Results: Test results from this visit will be discussed in further detail at your follow- up appointment, if applicable. Please Follow Up With: Emma Melton MD When: call office for appt to be seen in 2 weeks Proposed Discharge Date: 12/26/19
[2020-12-25 09:26] LABS: Bedside Glucose 91 mg/dL (70-110)
--- NOTE | 2020-12-25 09:57 | OP.PCM_ITS ---
Report of Operation Date of Procedure: 12/25/20 - start 1038: finished 11:36am Pre-Operative Diagnosis: uterovaginal prolapse, Urinary stress incontinence Post-Operative Diagnosis: same Surgery/Procedure Performed:: TVH Description of Surgical Findings:: cervix flush with vagina. unable to visualize tubes and ovaries. safety person: Cynthia Serna safety person: ganga franklin Type of Anesthesia:: General Special Medications: .25%marcaine with epinephrine Specimen's removed: uterus, cervix Drains: swartz Estimated Blood Loss (mL): 100 Fluids Replaced: 900 Description of Procedure: Patient take to OR and prepped and draped in usual sterile fashion in dorsal lithotomy position with her arms tucked in a neurologically safe and neutral position. swartz was placed. Sandie clamps were placed on the anterior and po sterior aspect of the cervix. Quarter percent Marcaine with epinephrine was injected in a circumferential fashion around the cervix. At this time the knife was used to make a circumferential incision around the cervix. At this time then gentle traction was placed anteriorly and the peritoneum was entered using the Metzenbaum scissors. Attention was then turned to the posterior cul-de-sac where again gentle traction was placed in the Barron scissors were used to enter the posterior cul-de-sac. The swan-neck speculum is placed. And the Nitza was used to retract anteriorly. At this time Angelo clamp was placed around the uterosacral ligaments were clamped transected and suture ligated cervical portion of the uterine arteries were clamped cut and suture ligated pedicles were hemostatic. Next the utero-ovarian ligaments and the remaining portion of the broad ligament were clamped suture ligated and freely tied. The uterus was removed without difficulty. unable to visualize tubes and ovaries well- decision to leave them in placed. All pedicles were examined and good hemostasis was appreciated. Vaginal cuff closed with 0-viryl in interrupted figure of 8 fashion. The cystoscopy was performed by Dr. Melton. The bladder was intact. Both ureteral jets were seen There were no complications. Anticipated normal postoperative course for this patient. Instrument lap needle count were correct. Vaginal sweep was performed was negative. At this Dr. Emma Melton to assume care and perform Anterior repair, SSLF, possible dermis, possible posterior repair, sling and cysto. Grafts/Implants Used: none for TVH Grafts/Implants Used: none - Complications none - Admit VTE Documentation VTE Present on Admission: Yes VTE Mechan Device Prophylaxis: SCD's VTE Pharm Prophylaxis ordered?: Yes
--- NOTE | 2020-12-25 10:20 | HYST_PTH ---
PATIENT: CAROLYN RAYMUNDO LOC: [facility]3 U#:[id number] AGE/SX: 85/F ROOM: MS313 RE12/25/[address]: Dr. Yuan Montanez MD : 1935 BED: 1 DIS: 12/26/2020 SPEC #: [id number] RECD: 12/25/20 13:24 STATUS: NICOLAS REQ #: [id number] KARYN: 12/25/20 10:[address]: Keyona Vega DEPT: SURGICAL PATHOLOGY RECD BY: Marcelle Najera ENTERED: 12/26/20 07:34 SP TYPE: HYSTERECT OTHR DR: MD Dr. She Rodriguez MD Dr. David Kittoe, MD Dr. Deidre Neyhart-McIntosh, MD Dr. Holly Wyneski, MD Tissues: A - Uterus, NOS B - Urinary bladder, NOS Procedures: Surgery Specimen Level IV Surgery Specimen Level V Comments: @ Ordering doctor for SUIV edited from to DR.DMCINT Nakia BRENNAN at 12/26/20818 @ Ordering doctor for SUV edited from to DR.DMCINT Nakia BRENNAN at 12/26/20 08 @ Submitting doctor edited from to DR.DMCINT Nakia BRENNAN at 12/26/20818 HEADER OPERATION: Vaginal hysterectomy PRE-OP DIAGNOSIS: Complete uterovaginal prolapse and incontinence TISSUE SUBMITTED: A - Uterus and cervix, B - Bladder biopsy MICROSCOPIC DIAGNOSIS A. Uterus, hysterectomy: Cervix - mild chronic inflammation and nabothian cysts. Endometrium - simple and complex hyperplasia without atypia. Myometrium - adenomyosis and calcification of vessel ramos. See comment. B. Bladder biopsy: Minute fragment of urothelium with hyperplastic change. See comment. AM:patricia 12/26/2020 COMMENT A. Hyperplasia involves areas of adenomyosis. B. Complete excision of lesion is recommended for definitive classification. MICROSCOPIC DESCRIPTION Slides are reviewed. GROSS DESCRIPTION A - Received in fixative is one container labeled with the patient's name and designated uterus. The specimen consists of a uterus with attached cervix without fallopian tubes or ovaries measuring 9.5 x 3 x 2.5 cm and weighing 28.5 gm. The ectocervix is grossly unremarkable. The endocervical canal measures 3.5 cm in length and is grossly unremarkable. The triangular endometrial cavity measures 2.5 x 1.5 cm. The endometrium measures 0.1 cm in thickness and is grossly unremarkable. The myometrium measures 1 cm in average thickness and focally contains a fibrous area measuring 1.2 cm in greatest dimension. Metal Cnc Operator sections are submitted in 11 cassettes as follows: 1 - anterior cervix, 2 - posterior cervix, 3 & 4 - anterior uterine wall, 5 & 6 - posterior uterine wall, 7 - fibrous nodule, 8-11 - remainder of endometrium. B - Received in fixative is one container labeled with the patient's name and designated bladder biopsy. The specimen consists of multiple irregular fragments of light christine soft tissue that in aggregate measure 0.6 x 0.2 x 0.1 cm. The specimen is totally submitted in one cassette. / AM:patricia 12/25/20 TC:? CPT: 58136, 05738
[2020-12-25] MEDS: Cefazolin 2 GM in 0.9% Normal Saline 100 ML IV (10:27)
[2020-12-25] MEDS: Bupiv/Epi 0.25% 30 ML Vial (12:28)
[2020-12-25] MEDS: Estrogens,Conj. 1 Tube 1 DOSE (12:29)
[2020-12-25] MEDS: Dextrose 5%-Lactated Ringers 1,000 ML 100 ML IV ×2 (14:16→23:27)
[2020-12-25] MEDS: Morphine 4 MG/ML Syringe 2 MG IV (14:16)
[2020-12-25] MEDS: Smz/Tmp Ds Tablet 1 TABLET PO (16:07)
--- NOTE | 2020-12-25 22:44 | NURSING ---
Lab advised we have stat labs ordered on this pt.
--- NOTE | 2020-12-25 23:00 | NURSING ---
Dr Melton and Dr Ragland in to see pt at bedside.
--- NOTE | 2020-12-25 23:08 | CT_ITS ---
STUDY: CT BRAIN WITHOUT CONTRAST REASON FOR EXAM: Female, 85 years old. CONFUSION TONIGHT RADIATION DOSAGE (If Supplied By Facility): CTDIvol = ( 44.99 ) mGy, DLP = ( 762.36 ) mGycm TECHNIQUE: Transaxial CT imaging of the brain was performed without administration of intravenous contrast material. Individualized dose optimization techniques were used for this CT. COMPARISON: No relevant priors. FINDINGS: Normal soft tissue structures. Normal calvarium. There is mild cerebral atrophy with widening of the extra-axial spaces and ventricular dilatation. Normal white matter tracts of the cerebral hemispheres. Normal basal ganglia and thalami. Normal brainstem. Normal cerebellum. There is no intracranial hemorrhage. There are no findings of an acute ischemic infarction. Normal visualized paranasal sinuses. CT/Brain/Head without Contrast IMPRESSION: Mild involutional changes otherwise normal unenhanced CT scan of the brain for age. Electronically Signed: Renata Lucero MD at 0:21 EST , Service support ,
--- NOTE | 2020-12-25 23:09 | PN_ITS ---
Patient Problems: Active and Suspected Problems (Last Reviewed 12/23/20 @ 12:[address] Nader Chinchilla MD) Stress incontinence (Acute) Subjective: Patient with recent intervention per urology and WING COMMANDER for complete uterovaginal prolapse and incontinence with postoperative onset of confusion and decreased responsiveness with last pain regimen noted much earlier in the afternoon. Patient laying in the medical surgical bed, arousable, notes currently pain is controlled and denies any complaints, intermittently falling back asleep quickly. Patient evaluation repeated several times and did improve but again falling back asleep very quickly and did discuss plan of care with patient including CT head, ABG, CBC, BMP, magnesium, TSH evaluations. Patient denies fevers, chills, nausea, emesis, chest pain or dyspnea. Objective: Physical Examination: General: awakens to stimuli and intermittently alert, oriented initially to self, place and recent events but gives initially wrong year with repeat evaluation and end of exam with correct year and month, intermittently falling asleep, remains cooperative, laying in the medical surgical bed, no acute distress. Skin: normal color, turgor, no icterus, cyanosis. HEENT: AT/NC, EOMI, PERRLA, mildly dry MM, no carotid bruits or JVD noted. Lungs: CTA bilaterally, moderate effort, moderate decrease BL bases, no rales, ronchi or wheezing. Heart: Regular rate and rhythm; no gallop, rub audible. Abdomen: soft, expected tenderness to palpation to abdomen given recent OR, mildly distended, distant normal BS, defer HSM evaluation secondary recent ORN pain Extremities: no cyanosis, clubbing, or edema. Neurological: patient awake, alert, oriented as noted; cognitive function suspected decreased from baseline intact; pupils equally reactive to light and accomodation; cranial nerves II-XII grossly normal, moving all 4 extremities, no focal deficits, strength moderately global decrease secondary to acute presentation currently. Psychiatric: affect appears fatigued, flat, no acute evidence of depressive or anxiety feelings. Vitals/I&O's: Vital Signs Temp Pulse Resp BP Pulse Ox 97.9 F 58 L 12 103/43 L 98 12/25/20 22:07 12/25/20 22:07 12/25/20 22:07 12/25/20 22:07 12/25/20 22:07 Oxygen Flow Rate (L/min) 2 Oxygen Delivery Method Nasal Cannula Weight: 144 lb Body Mass Index (BMI) 28.3 Intake and Output for Last 24 Hours 12/23/20 12/24/20 12/25/20 23:59 23:59 23:59 Intake Total 323.33 / 323.33 Output Total 350 / 350 Balance -26.67 / -26.67 Microbiology Past 72 Hours 12/24/20 08:40 Interface Orders SARS-CoV-2 Antigen (Rapid) - Final Laboratory Results 12/25/20 08:55: POC Glucose 91 Current Medications Acetaminophen (Acetaminophen 325 Mg Tablet) 650 mg PO Q6H PRN PRN PRN Reason: Pain Score 1-10 Docusate Sodium (Docusate Sodium 100 Mg Capsule) 100 mg PO BID [facility] Last Admin: 12/25/20 21:43 Dose: Not Given Documented by: Enoxaparin Sodium (Enoxaparin 40 Mg/0.4 Ml Syringe) 40 mg SC DAILY [facility] Dextrose/Lactated Ringer's () 1,000 mls @ 100 mls/hr IV .Q10H [facility] Last Admin: 12/25/20 14:16 Dose: 100 mls/hr Documented by: Sodium Chloride () 250 mls @ 15 mls/hr IV .[id number] PRN PRN Reason: Saline Flush Sodium Chloride () 250 mls @ 15 mls/hr IV .[id number] PRN PRN Reason: Additional IVPB Infusion Ondansetron HCl (Ondansetron 4 Mg/2 Ml Vial) 4 mg IV Q8H PRN PRN PRN Reason: NAUSEA Sodium Chloride (0.9% Saline Lock 10 Ml Syringe) 10 - 40 ml IV UD PRN PRN Reason: SALINE FLUSH Trazodone HCl (Trazodone 50 Mg Tablet) 50 mg PO QHS [facility] Last Admin: 12/25/20 21:32 Dose: Not Given Documented by: Trimethoprim/Sulfamethoxazole (Sm[facility] Ds [facility]t) [facility] Last Admin: 12/25/20 16:07 Dose: 1 tablet Documented by: STROKE Vital Signs/Narrative: Vital Signs Temp Pulse Resp BP Pulse Ox 12/25/20 22:07 97.9 F 58 L 12 103/43 L 98 12/25/20 20:17 98.1 F 63 14 106/44 L 97 Medical Necessity - Tobacco Use Smoking Status: Former smoker Tobacco Use: Non-smoker Assessment/Plan All Active Problems (Last Reviewed 12/23/20 @ 12:[address] Nader Chinchilla MD) Stress incontinence (Acute) Encounter for pre-operative cardiovascular clearance (Acute) Abnormal electrocardiogram (Acute) The patient is an 85 y/o F w/ PMHx: IBS, Former Tobacco use, Anxiety and Depression, HLD, GERD who presents to the [facility] as direct admission for planned surgical intervention for complete ureterovaginal prolapse and incontinence per security system technician and urology with postoperative confusion noted. 1. Acute encephalopathy, suspected multifactorial including medications with scopolamine patch and mild hypercapnia with hypoventilation and possibly underlying COPD with former tobacco use: Patient evaluation with some confusion, scopolamine patch removed, initially answer questions inappropriately but once more alert responses became more appropriate, had been per surgery report potentially seeing things on the ceiling, ABG obtained and mild hypercapnia with underlying prior tobacco use history noted to have quit in 1966 therefore discussed with respiratory and will temporarily placed on BiPAP, if possible defer any narcotic further therapy, CT head additionally requested following discussion with surgery service, maintain on fall and aspiration precautions, repeat hemoglobin postoperatively 10.9 from 12.5, BMP with glucose 170 otherwise not marked appearing, magnesium TSH levels pending. 2. Normocytic anemia, postoperative, secondary to operative blood loss: 12/19/2020 preop hemoglobin 12.5, 12/25/2020 hemoglobin obtained following symptom onset with confusion noted to be 10.9, will repeat CBC in AM. 3. Hyperglycemia: 12/25/2020 glucose 170, previously normal, no specific diabetic history, do suspect likely from acute intervention and medications, to be cautious however will obtain A1c level. 4. Complete uterovaginal prolapse and incontinence: Status post TVH and repair of sacrospinous ligament fixation with sling and cystoscopy per WING COMMANDER and urology, pain regimen, antiemetic, DVT prophylaxis per surgery and security system technician discretion, however given recent presentation will defer significant pain regimen given transient confusion with ongoing evaluation. 5. Anxiety and depression: We will continue patient home Celexa/trazodone regimen once oral intake appropriate. 6. DVT prophylaxis: SCDs, Lovenox per surgery discretion. Inpatient E&M: [id number] [place] [id number]
--- NOTE | 2020-12-25 23:09 | PCM.PN.BLA ---
Progress Note Called to see patient secondary to decreased mental awareness and increased difficulty to arouse. She awakens to stimulation, aware of being in hospital, thinks it is 1987 and worried about a plug in the ceiling. No complaints of pain, shortness of breath, states she feels good. Afebrile. BP ok, heart rate around 60. urine output sufficient. Abdomen soft, appropriately tender suprapubic area. Urine clear, pad dry. SCD's in place. Extremities warm. CBC and BMP pending. at bedside. Scopolamine patch identified and removed. A/P POD hysterectomy anterior repair and sling, cystoscopy ABG and labs pending for CT head continue supportive care and hold pain medications STROKE Vital Signs/Narrative: Vital Signs Temp Pulse Resp BP Pulse Ox 12/25/20 22:07 97.9 F 58 L 12 103/43 L 98 12/25/20 20:17 98.1 F 63 14 106/44 L 97
[2020-12-25 23:28] LABS: Absolute Lymphocyte Count 0.64 X10^3/uL (0.83-4.51); Absolute Neutrophil Count 7.1 X10^3/uL (2.0-7.7); Basophil# 0.01 X10^3/uL; Basophil% 0.1 % (0-1); Hematocrit 33.5 % (37-47); Hemoglobin 10.9 g/dL (12.0-15.0); Lymphocyte # 0.64 X10^3/ul (4.0); Lymphocyte % 7.7 % (19-41); Mean Corp Hgb Conc 32.5 g/dL (32-36); Mean Corpuscular Hgb 29.8 pg (27.0-32.0); Mean Corpuscular Volume 91.5 fL (81-99); Mean Platelet Vol. 8.8 fl (6.2-12.0); Monocyte# 0.52 X10^3/uL; Monocyte% 6.2 % (0-10); NRBC Flagged by Analyzer 0 % (0-5); Neutrophil # 7.13 X10^3/uL (2.7-7.7); Neutrophil % 85.5 % (47-70); Platelet Count 177 K/mm3 (150-450); RBC Distribution Width CV 12.3 % (11.6-14.6); RBC Distribution Width SD 41.4 fl (35.1-43.9); Red Blood Count 3.66 M/mm3 (4.2-5.4); White Blood Count 8.3 K/mm3 (4.4-11.0)
[2020-12-25 23:39] LABS: Anion Gap 4 (5-15); BUN 12 mg/dL (7-18); BUN/Creat Ratio 12.7 RATIO (10-20); Calcium,Total 8.4 mg/dL (8.5-10.1); Chloride 107 mmol/L (98-107); Creatinine, Serum 0.95 mg/dL (0.55-1.02); EST Glomerular Filtration Rate 60 mL/min (>60); Est Glom Filt Rate - Afr Amer 73 mL/min (>60); Estimated Creatinine Clearance 46.27 ml/min; Glucose 170 mg/dL (74-106); Potassium 4.7 mmol/L (3.5-5.1); Sodium Level 139 mmol/L (136-145)
[2020-12-25 23:46] LABS: Allen Test Positive; Base Excess 1 mmol/L (-2 to +2); Bicarbonate 27.1 mmol/L (22-26); Blood Gas Specimen Type ART; O2 Delivery Device Cannula; PO2 80 mmHG (75-100); SITE L Radial; SO2 95 % (95-99); Total Carbon Dioxide 29 mmol/L; pH 7.34 (7.35-7.45)
[2020-12-25 23:57] LABS: Magnesium 1.8 mg/dL (1.6-2.6); Thyroid Stim Hormone (TSH) 1.39 uIU/mL (0.358-3.74)
[2020-12-26] VITALS (10 sets, daily range): BP systolic 93–115; BP diastolic 39–46; PULSE 56–93; RESP 14–18; TEMP 36.5–37.2; O2SAT 92–98
--- NOTE | 2020-12-26 07:53 | PCM.PN.HOSP ---
Patient Problems: Active and Suspected Problems (Last Reviewed 12/23/20 @ 12:[address] Nader Chinchilla MD) Stress incontinence (Acute) Reason for Visit: Consult for altered mental status Subjective: Patient is an 85-year-old lady who underwent hysterectomy anterior repair and sling, cystoscopy on 12/25/2020. Hospitalist service was consulted after patient was found to be confused with decreased level of sensorium Objective: GENERAL: Patient appears delirious HEENT: Atraumatic; EYES; Anicteric, Normal Conjunctiva NECK; supple, normal thyroid, RESPIRATORY: Diminished to auscultation CARDIOVASCULAR: Regular S1 S2, GI: soft, normoactive bowel sounds, : No Renal angle tenderness; EXTREMITIES: No edema, no clubbing, MUSCULOSKELETAL: no muscle waisting NEURO: Awake; no lateralizing signs. SKIN: No Rash PSYCH; delirious Vitals/I&O's: Vital Signs Temp Pulse Resp BP Pulse Ox 99.0 F 60 18 101/45 L 96 12/26/20 04:45 12/26/20 04:45 12/26/20 04:45 12/26/20 04:45 12/26/20 04:45 Oxygen Flow Rate (L/min) 2 Oxygen Delivery Method Room Air Weight: 65.317 kg Body Mass Index (BMI) 28.3 Intake and Output for Last 24 Hours 12/24/20 12/25/20 12/26/20 23:59 23:59 23:59 Intake Total 1241.66 / 1241.66 500 / 500 Output Total 350 / 775 825 / 825 Balance 891.66 / 466.66 -325 / -325 Microbiology Past 72 Hours 12/24/20 08:40 Interface Orders SARS-CoV-2 Antigen (Rapid) - Final Laboratory Results 12/25/20 08:55: POC Glucose 91 12/25/20 23:20: Sodium 139, Potassium 4.7, Chloride 107, Carbon Dioxide 28.0, Anion Gap 4 L, BUN 12, Creatinine 0.95, Estim Creat Clear Calc 46.27, Est GFR (MDRD) Af Amer 73, Est GFR (MDRD) Non-Af 60, BUN/Creatinine Ratio 12.7, Glucose 170 H, Calcium 8.4 L 12/25/20 23:20: WBC 8.3, RBC 3.66 L, Hgb 10.9 L, Hct 33.5 L, MCV 91.5, MCH 29.8, MCHC 32.5, RDW Std Deviation 41.4, RDW Coeff of [place] 12.3, Plt Count 177, MPV 8.8, Immature Gran % (Auto) 0.500, Neut % (Auto) 85.5 H, Lymph % (Auto) 7.7 L, [place] % (Auto) 6.2, Eos % (Auto) 0.0, Baso % (Auto) 0.1, Absolute Neuts (auto) 7.1, Absolute Lymphs (auto) 0.64 L, Nucleated RBC % 0 12/25/20 23:20: Magnesium 1.8, TSH 1.39 12/25/20 23:20: Hemoglobin A1c Pending 12/25/20 23:38: Specimen Type ART, Sample Site L Radial, pH 7.34 L, Bicarbonate Actual 27.1 H, Total CO2 29, Base Excess 1, O2 Saturation 95, ABG pCO2 50.0 H, ABG pO2 80, Jann Test Positive, O2 Delivery Device Cannula, Liter Flow 2.0 Current Medications Acetaminophen (Acetaminophen 325 Mg Tablet) 650 mg PO Q6H PRN PRN PRN Reason: Pain Score 1-10 Docusate Sodium (Docusate Sodium 100 Mg Capsule) 100 mg PO BID [facility] Last Admin: 12/25/20 21:43 Dose: Not Given Documented by: Enoxaparin Sodium (Enoxaparin 40 Mg/0.4 Ml Syringe) 40 mg SC DAILY [facility] Dextrose/Lactated Ringer's () 1,000 mls @ 100 mls/hr IV .Q10H [facility] Last Admin: 12/25/20 23:27 Dose: 100 mls/hr Documented by: Sodium Chloride () 250 mls @ 15 mls/hr IV .[id number] PRN PRN Reason: Saline Flush Sodium Chloride () 250 mls @ 15 mls/hr IV .[id number] PRN PRN Reason: Additional IVPB Infusion Ondansetron HCl (Ondansetron 4 Mg/2 Ml Vial) 4 mg IV Q8H PRN PRN PRN Reason: NAUSEA Sodium Chloride (0.9% Saline Lock 10 Ml Syringe) 10 - 40 ml IV UD PRN PRN Reason: SALINE FLUSH Trazodone HCl (Trazodone 50 Mg Tablet) 50 mg PO QHS [facility] Last Admin: 12/25/20 21:32 Dose: Not Given Documented by: Trimethoprim/Sulfamethoxazole (Smz/Tmp Ds Tablet) 1 tablet PO BIDCM [facility] Last Admin: 12/25/20 16:07 Dose: 1 tablet Documented by: STROKE Vital Signs/Narrative: Vital Signs Temp Pulse Resp BP Pulse Ox 12/26/20 04:45 99.0 F 60 18 101/45 L 96 12/26/20 04:03 59 L Medical Necessity - Tobacco Use Smoking Status: Former smoker Tobacco Use: Non-smoker Assessment/Plan All Active Problems (Last Reviewed 12/23/20 @ 12:[address] Nader Chinchilla MD) Stress incontinence (Acute) Encounter for pre-operative cardiovascular clearance (Acute) Abnormal electrocardiogram (Acute) Patient is an 85-year-old lady who underwent hysterectomy anterior repair and sling, cystoscopy on 12/25/2020. Hospitalist service was consulted after patient was found to be confused with decreased level of sensorium 1. Status posthysterectomy anterior repair and sling, cystoscopy on 12/25/2020 -Management regarding to wound care, pain management, PT OT defer to primary service 2. Postop delirium -Secondary to combination of factors including medications (patient was on scopolamine patch which was removed as well as bicarbonate and hypoventilation with patient suspected underlying history of COPD. As part of patient's management also requested for urinalysis to rule out infectious etiology. Patient was also found to have relatively low lymphocytes ordered COVID-19 assay 3. Anemia - Secondary to chronic disorder well as post postop blood loss, monitoring H&H and transfuse if patient becomes symptomatic or hemoglobin falls below 7 4. Depression with anxiety ?Patient is on Celexa and trazodone with plans to resume once patient level of sensorium improves 5. DVT prophylaxis ?Defer to primary service Inpatient E&M: 51818 Subs Hosp L2
[2020-12-26] MEDS: Smz/Tmp Ds Tablet 1 TABLET PO (08:14)
[2020-12-26] MEDS: Enoxaparin 40 MG/0.4 ML Syringe SC (08:14)
[2020-12-26] MEDS: Docusate Sodium 100 MG Capsule PO (08:14)
[2020-12-26 08:30] LABS: Hemoglobin A1c 5.3 % (3.8-5.6)
[2020-12-26] MEDS: Acetaminophen 325 MG Tablet 650 MG PO (09:10)
[2020-12-26] MEDS: Dextrose 5%-Lactated Ringers 1,000 ML 100 ML IV (11:01)
[2020-12-26 12:46] LABS: Mucous, Urine 0 SEEN /hpf (<or=2+)
[2020-12-26 12:59] LABS: Color, Urine Yellow (Yellow); Glucose, Dipstick Normal (Normal); Ketone-Dipstick Negative (Negative); Leukocyte Esterase-Dipstick 500 /ul (Negative); Nitrite-Dipstick Positive (Negative); Occult Blood-Urine 250 /ul (Negative); Protein-Dipstick 30 mg/dl (Negative); Urine Bilirubin Dipstick Negative (Negative); Urine Clarity Sl. Cloudy (Clear); Urine Urobilinogen Normal (Normal); Urine pH 6.5 (5.0 - 8.0)
[2020-12-26 13:06] LABS: Bacteria 1+ /hpf (None Seen); Red Blood Cells-Urine 25-50 SEEN /hpf (0-5); Squamous Epithelial Cells - UA 0-5 SEEN /hpf (5-10); White Blood Cells 25-50 SEEN /hpf (0-5)
== END 2020-12-26 15:53 | disposition home or self-care (01) ==
LOC: SDC 13:13 → MS3 12-26 07:07
PROVIDERS: Family Medicine; Admitting Provider Urology; PCP Internal Medicine; Referring Provider Obstetrics & Gynecology; Visit Provider Internal Medicine
PROC: (CPT 58260; principal; 2020-12-25 10:00)
PROC: (CPT 57260; 2020-12-25 10:00)
DX: N81.3 Complete uterovaginal prolapse (principal); N39.3 Stress incontinence (female) (male); Z20.828 Contact with and (suspected) exposure to other viral communicable diseases; K58.9 Irritable bowel syndrome, unspecified; N30.10 Interstitial cystitis (chronic) without hematuria; E78.5 Hyperlipidemia, unspecified; Z79.899 Other long term (current) drug therapy; Z87.891 Personal history of nicotine dependence; K21.9 Gastro-esophageal reflux disease without esophagitis; G93.40 Encephalopathy, unspecified; R73.9 Hyperglycemia, unspecified; F41.8 Other specified anxiety disorders
CPT/HCPCS: 00940; 52204; 57240; 57288; 58260; 36415; 36600; 70450; 80048; 81001; 82803; 82962; 83036; 83735; 84443; 85025; 85027; 86850; 86900; 86901; 87077; 87086; 87088; 87186; 87426; 87635; 88305; 88307; 93005; 94002; 96361; 96372; 96374; 99218; 99251; C9803; J7120; C1769; G0378; G0379; G0463; J2405; U0002

== ENCOUNTER → 2021-03-03 10:17 | Outpatient (CLI) | payer MEDICARE, SELFPAY ==
[2020-12-25 14:23] VITALS: BMI 28.3
[2021-03-03 12:27] LABS: Anion Gap 1 (5-15); BUN 18 mg/dL (7-18); BUN/Creat Ratio 17.6 RATIO (10-20); Calcium,Total 8.9 mg/dL (8.5-10.1); Chloride 105 mmol/L (98-107); Creatinine, Serum 1.02 mg/dL (0.55-1.02); EST Glomerular Filtration Rate 55 mL/min (>60); Est Glom Filt Rate - Afr Amer 67 mL/min (>60); Glucose 87 mg/dL (74-106); Sodium Level 137 mmol/L (136-145)
== END ==
PROVIDERS: PCP Internal Medicine; Referring Provider Urology; Visit Provider Urology
DX: R35.1 Nocturia (principal)
CPT/HCPCS: 36415; 80048

== ENCOUNTER 2021-11-26 08:38 | Outpatient (CLI) | payer MEDICARE, SELFPAY ==
[2021-11-26 08:41] VITALS: BP 130/64; PULSE 83; RESP 16; TEMP 37.3; O2SAT 94; BMI 31.6
[2021-11-26] MEDS: 0.9% Saline Lock 10 ML Syringe IV (08:44)
[2021-11-26 10:04] VITALS: BP 111/58; PULSE 63; RESP 16; TEMP 37.1; O2SAT 95
[2021-11-26 10:50] VITALS: BP 120/59; PULSE 63; RESP 16; TEMP 37.2; O2SAT 96
== END 2021-11-26 11:06 | disposition home or self-care (01) ==
LOC: MS3OUT 08:38 → MS3 08:39
PROVIDERS: PCP Internal Medicine; Referring Provider Nurse Practitioner Adult Health; Visit Provider Nurse Practitioner Adult Health
DX: Z23 Encounter for immunization (principal); U07.1 COVID-19
CPT/HCPCS: J7050; M0245; Q0245; A4216

== ENCOUNTER 2022-11-11 15:41 | Emergency (ER) | payer MEDICARE, SELFPAY ==
[2022-11-11 15:42] VITALS: BP 152/71; PULSE 70; RESP 16; TEMP 36.3; O2SAT 98; BMI 31.2
--- NOTE | 2022-11-11 16:19 | RAD_ITS ---
INDICATION: Trauma, fall, sternoclavicular pain EXAMINATION/TECHNIQUE: X-RAY - LEFT XR Clavicle Unilateral 2 VIEWS COMPARISON: None. FINDINGS: SOFT TISSUES: No soft tissue swelling or gas. No radiopaque foreign body. BONES/JOINTS: No acute fracture. Joint spaces anatomically maintained. No sclerotic or destructive changes observed. RAD/Clavicle IMPRESSION: No acute bony abnormality. Electronically Signed: Skyler May MD at 16:55 EST ,
--- NOTE | 2022-11-11 16:19 | RAD_ITS ---
INDICATION: Trauma, fall, injury and shoulder pain EXAMINATION/TECHNIQUE: X-RAY - LEFT XR Shoulder Min 2 Views 5 VIEWS COMPARISON: Chest x-ray 08/18/2016 FINDINGS: SOFT TISSUES: No soft tissue swelling or gas. No radiopaque foreign body. BONES/JOINTS: No acute fracture. Joint spaces anatomically maintained.. No sclerotic or destructive changes observed. RAD/Shoulder min 2 Views IMPRESSION: No acute bony abnormality. Electronically Signed: Skyler May MD at 16:56 EST ,
[2022-11-11] MEDS: Morphine 4 MG/ML Syringe IM (16:25)
--- NOTE | 2022-11-11 16:36 | EX.ED.GENINJ ---
HPI History of Present Illness Chief Complaint: Fall Informant: patient Narrative Narrative: Patient is an 87-year-old female presenting with left clavicle pain. Prior to arrival patient was standing on a kitchen chair trying to get something from above her refrigerator. The chair slipped and she fell down. Patient's legs crumbled and she landed on her left shoulder. She denies hitting her head or any loss of consciousness. She denies taking any blood thinners. At rest she says she is not having much pain but she has severe pain with any attempts to range of motion her left shoulder. She has swelling over the medial aspect of her left collarbone. No other complaints or concerns at this time. No associated numbness and tingling. Patient was able to get her self up and has walked into the emergency room. [facility] Medical History Cholecystitis Colitis COVID-19 GERD (gastroesophageal reflux disease) GERD (gastroesophageal reflux disease) H/O emotional problems Incontinence in female Interstitial cystitis Irregular heart rate Kidney disease Personal history of colonic polyps Uterovaginal prolapse, complete UTI (urinary tract infection) Wears glasses Home Medications Lactobacillus Acidophilus 1 cap PO QODAY 08/18/16 [History Last Taken 08/18/16] citalopram 20 mg tablet 20 mg PO DAILY 08/18/16 [History Last Taken 08/18/16] trazodone 50 mg tablet 50 mg PO QHS 08/18/16 [History Last Taken 08/17/16] estradiol 0.01% (0.1 mg/gram) vaginal cream (Estrace) 1 g vaginal QWEEK 12/22/20 [History Last Taken Unknown] dexamethasone 4 mg tablet (Decadron) 4 mg PO DAILY #5 tabs 11/25/21 [Rx Last Taken Unknown] hydrocodone-acetaminophen 5-325mg 5mg-325mg 1 tab PO Q6H PRN pain 3 days #12 tabs 11/11/22 [Rx Last Taken Unknown] Allergy/AdvReac Type Severity Reaction Status Date / Time ibuprofen Allergy Rash Verified 11/11/22 15:43 Penicillins Allergy Rash Verified 11/11/22 15:43 Family History Mother Depression Arthritis Grandmother Depression Brother Depression Diabetes Family History no significant family his no significant family history Surgical History History of bilateral cataract extraction History of cholecystectomy History of colonoscopy History of hernia repair History of tubal ligation Social History Smoking Status: Former smoker alcohol intake: never substance use type: does not use what type of physical activity do you participate in: other details: Water Aerobics ROS ROS ED Constitutional Constitutional ED: Denies fever(s) Eyes Eyes: Denies change in vision or eye pain ENT ENT ED: Denies dental pain, mouth lesions or nasal trauma Cardiovascular Cardiovascular: Denies chest pain or syncope Respiratory/Chest Respiratory/Chest: Denies cough or dyspnea Gastrointestinal Gastrointestinal: Denies abdominal pain or nausea Genitourinary Genitourinary ED: Denies dysuria or hematuria Musculoskeletal Musculoskeletal: Reports other Details: left shoulder and clavicle pain ; Denies arthralgias, back pain or myalgias Integumentary Denies Abrasions or wounds Neurologic Neurologic: Denies headache(s), paresthesias or weakness Psychiatric Psychiatric: Denies anxiety or depression Hematologic/Lymphatic Hematologic/Lymphatic: Denies easy bleeding or easy bruising EXAM Physical Exam Const Vital Signs: 11/11/22 15:42 11/11/22 16:01 Temperature 97.3 F L Temperature Source Temporal Pulse Rate 70 Respiratory Rate 16 Respiratory Effort Normal Non-Labored Respiratory Depth Normal Respiratory Pattern Normal Blood Pressure 152/71 H Blood Pressure Mean 98 Pulse Ox 98 Oxygen Delivery Method Room Air Room Air Positive well nourished and well developed General Appearance ED: well developed and NAD HEENT Reports head/scalp atraumatic, hearing grossly normal bilaterally and TM's normal bilaterally normocephalic and atraumatic; Negative for Landa's sign, raccoon eyes or scalp tenderness Nose: no nasal discharge Tympanic Membrane ED: Yes TM's normal bilaterally Mouth ED: Yes other Mouth: other Other Details: No Malocclusion Eyes PERRL Neck full ROM General: Negative for tenderness Thyroid: Negative for tender Chest Wall Chest Narrative: Tenderness and edema to the medial aspect of the left clavicle. No crepitus appreciated. No other chest wall tenderness or abnormalities. Chest: Negative for crepitus Resp normal respiratory effort, no retractions and clear to auscultation bilaterally Cardio regular rate and regular rhythm Jugular Venous Distention: Negative for JVD Peripheral Pulses: pulses 2+ throughout GI non-tender and non-distended Palpation: soft; Negative for guarding or rebound tenderness present Back/Spine Cervical Spine: Negative for cervical spine tenderness Thoracic Spine / Upper Back: Negative for thoracic spinal tenderness Lumbar Spine / Lower Back: Negative for lumbar spinal tenderness Extremity normal to inspection and full ROM Extremity Narrative: pelvis stable, no deformity . No deformity of the left shoulder. Range of motion is limited secondary to pain. No pinpoint tenderness to palpation of the left shoulder. Normal range of motion and strength of the hands. Neuro oriented x3, moves all extremities and no sensory deficits noted Sensorium / Orientation: alert Motor Exam: strength 5/5 throughout Psych mental status grossly normal Skin no wounds Trauma: Negative for abrasion MDM MDM MDM Narrative Medical decision making narrative: Patient is evaluated after mechanical fall. She denied her head. She has deformity to the left clavicular head with some associated soft tissue swelling and tenderness. No significant ecchymosis at this time. She does have a small 3 cm skin tear to her left elbow. No bony tenderness of the elbow. Initially clavicle and shoulder x-rays ordered which are normal. Due to patient's deformity and pain a CT of the chest is ordered to further evaluate. Especially in the location and amount of swelling and I would like to make sure there is no obvious vascular injury, expanding hematoma or depressed clavicular fracture/first rib fracture. CT does show comminuted fracture of the medial head of the left clavicle. Patient does achieve adequate pain control with IV morphine in the ER. She was placed in a sling. Case is discussed with orthopedics on-call, Dr. Mejia, who is amenable with outpatient follow-up. Patient is neuro vastly intact. She denied her head and I do not think head imaging is indicated at this time. Patient is discharged with a course of [place] for pain control. She is given a dose prior to discharge. Is counseled on the risk and benefits of opioid pain medication including increased risk of falls, confusion as well as constipation. Encouraged to increase her daily dose of MiraLAX. Patient and her daughter/family are agreeable with this plan of care. Patient ambulates easily out of the emergency room. Radiography Diagnostic Testing: Clinical Impression(s) from Imaging Studies Clavicle X-Ray 11/11/22 16:19 IMPRESSION: No acute bony abnormality. Electronically Signed: Skyler May MD at 16:55 EST , Shoulder X-Ray 11/11/22 16:19 IMPRESSION: No acute bony abnormality. Electronically Signed: Skyler May MD at 16:56 EST , Chest CT 11/11/22 18:21 IMPRESSION: Comminuted fracture of the medial head left clavicle. Electronically Signed: Skyler May MD at 19:39 EST , Discharge Plan Triage Chief Complaint: Fall ED Provider: Mavis Arciniega Dx/Rx/DC Orders Clinical Impression: Fracture of clavicle, Fall Instructions: ED Fracture, Clavicle Prescriptions: New hydrocodone-acetaminophen 5-325 mg tablet 1 tab PO Q6H PRN (Reason: pain) 3 Days Qty: 12 0RF No Action estradiol [Estrace] 0.01 % (0.1 mg/gram) cream 1 g VAGINAL QWEEK dexamethasone [Decadron] 4 mg tablet 4 mg PO DAILY Qty: 5 0RF trazodone 50 MG tablet 50 mg PO QHS Label Comments: sleep citalopram 20 MG tablet 20 mg PO DAILY Label Comments: anxiety Lactobacillus Acidophilus 1 cap PO QODAY Label Comments: probiotic Primary Care Provider: She Lazar Referrals: She Lazar MD [Primary Care Provider] - Neil Mejia MD [Med Staff - Active Staff] - 1 Week Activity Restrictions/Additional Instructions: Ice the area. He may take Tylenol but not take extra Tylenol on top of the [place] you are prescribed. Wear the sling for comfort. Follow-up with orthopedics. Disposition Disposition: Home, Self Care Discharge Date/Time: 11/11/22 20:50
--- NOTE | 2022-11-11 18:21 | CT_ITS ---
INDICATION: trauma -- swelling pain to left clavicular head EXAMINATION: CT CHEST WITHOUT CONTRAST - CT Chest W/O Contrast Injection TECHNIQUE: Helically acquired images were obtained of the chest. A radiation dose optimization technique was used for this scan. IV Contrast dosage and agent: None. COMPARISON: None. FINDINGS: LUNGS, PLEURA AND LARGE AIRWAYS: No masses, consolidation, or edema. No pleural effusion or thickening. No pneumothorax. THYROID: No thyroid lesions. HEART AND PERICARDIUM: Heart size is normal. No pericardial effusion. VESSELS: Thoracic aorta is not dilated. MEDIASTINUM AND LAVONNE: No mediastinal or hilar adenopathy. Esophagus is unremarkable. No hiatal hernia. UPPER ABDOMEN: No acute pathology. BONES: Comminuted and mildly displaced fracture of the medial head left clavicle. Sternoclavicular junction maintained. CT/Chest without Contrast IMPRESSION: Comminuted fracture of the medial head left clavicle. Electronically Signed: Skyler May MD at 19:39 EST ,
--- NOTE | 2022-11-11 20:09 | CON.PCM.OR_ITS ---
HPI Consult Data Date of Consult: 11/11/22 HPI Narrative HPI Narrative: CAROLYN RAYMUNDO, is a 87 F who presents with medial clavicle fracture. Called by ED physician who wants to arrange [facility] Medical History Cholecystitis Colitis COVID-19 GERD (gastroesophageal reflux disease) GERD (gastroesophageal reflux disease) H/O emotional problems Incontinence in female Interstitial cystitis Irregular heart rate Kidney disease Personal history of colonic polyps Uterovaginal prolapse, complete UTI (urinary tract infection) Wears glasses Home Medications Lactobacillus Acidophilus 1 cap PO QODAY 08/18/16 [History Last Taken 08/18/16] citalopram 20 mg tablet 20 mg PO DAILY 08/18/16 [History Last Taken 08/18/16] trazodone 50 mg tablet 50 mg PO QHS 08/18/16 [History Last Taken 08/17/16] estradiol 0.01% (0.1 mg/gram) vaginal cream (Estrace) 1 g vaginal QWEEK 12/22/20 [History Last Taken Unknown] dexamethasone 4 mg tablet (Decadron) 4 mg PO DAILY #5 tabs 11/25/21 [Rx Last Taken Unknown] Allergy/AdvReac Type Severity Reaction Status Date / Time ibuprofen Allergy Rash Verified 11/11/22 15:43 Penicillins Allergy Rash Verified 11/11/22 15:43 Family History Mother Depression Arthritis Grandmother Depression Brother Depression Diabetes Family History no significant family his Surgical History History of bilateral cataract extraction History of cholecystectomy History of colonoscopy History of hernia repair History of tubal ligation Social History Smoking Status: Former smoker alcohol intake: never substance use type: does not use what type of physical activity do you participate in: other details: Water Aerobics Vital Signs Vital Signs Vital Signs: 11/11/22 15:42 11/11/22 16:01 Temperature 97.3 F L Temperature Source Temporal Pulse Rate 70 Respiratory Rate 16 Respiratory Effort Normal Non-Labored Respiratory Depth Normal Respiratory Pattern Normal Blood Pressure 152/71 H Blood Pressure Mean 98 Pulse Ox 98 Oxygen Delivery Method Room Air Room Air Weight Weight: 160 lb Body Mass Index (BMI) 31.2 Physical Exam Narrative Not asked to personally assess patient. Per ED, closed NVI no tenting of the skin or other concerns. Radiology Impression Clavicle X-Ray 11/11/22 16:19 IMPRESSION: No acute bony abnormality. Electronically Signed: Skyler May MD at 16:55 EST , Shoulder X-Ray 11/11/22 16:19 IMPRESSION: No acute bony abnormality. Electronically Signed: Skyler May MD at 16:56 EST , Chest CT 11/11/22 18:21 IMPRESSION: Comminuted fracture of the medial head left clavicle. Electronically Signed: Skyler May MD at 19:39 EST , Agree, non displaced moderate comunition medial clavicle fracture. Assessment & Plan Assessment/Plan (1) Closed left clavicular fracture: PLAN: 87 yr old F left medial clavicle fracture. Would recommend sling non op management and FU in clinic within 7 days. ED physician in agreement.
[2022-11-11] MEDS: HYDROcodone Bitartrate/Apap 5/325 Tablet PO (20:42)
== END 2022-11-11 20:50 | disposition home or self-care (01) ==
PROVIDERS: Emergency Provider Emergency Medicine; PCP Internal Medicine; Visit Provider Emergency Medicine
DX: S42.022A Displaced fracture of shaft of left clavicle, initial encounter for closed fracture (principal); W07.XXXA Fall from chair, initial encounter; Z86.16 Personal history of COVID-19; Z79.899 Other long term (current) drug therapy; Z87.891 Personal history of nicotine dependence
CPT/HCPCS: 71250; 73000; 73030; 96372; 99283

== ENCOUNTER 2022-11-25 16:36 | Outpatient (RCR) | payer MEDICARE, SELFPAY ==
--- NOTE | 2022-11-25 18:46 | HP.PTEVAL_ITS ---
Patient's Visit Information CAROLYN RAYMUNDO is a 87 year old F referred to Physical Therapy by Dr. Neil Mejia MD with a diagnosis of L clavicle fracture. Date of Evaluation: 11/25/22 Physical Therapist: Subhash Zavala PT, ATC - Visit Plan Frequency: 1x/Week Duration: 2 Weeks Plan: Follow up or discharge in 4 weeks. Pt was issued phase 2 shoulder ex's to maintain joint ROM. Pt to follow up if complications occur - Subjective DOI: 11/11/22. Pt reports she was standing on a chair attempting to clean off the top of her fridge when the chair went out from under her and she fell. Pt reports she landed on her L side which resulted in a fx to her L clavicle. Pt was in a sling at first, but she reports it was useless and so she hasnt worn it lately. Pt reports she is on very minimal pain meds at this time. Pt is R hand dominant. Pt denies tingling or numbness in L UE. No sleep difficulty at this time secondary to pain. Pt reports she is currently sleeping in her electric recliner. Pt reports she needs help with taking a bath at this time. Pt reports she is limited with cleaning and with washing dishes at this time secondary to pain. 1/10 pain while at rest, 6/10 pain at its worst. - Pain L clavicle Pain Intensity (Out of 10): 1 Pain Intensity Range: 6 - Objective Neuro: B UE sensation is WNL to light touch. ROM: B UE's are WFL when compared bilaterally. MMT: B UE's are grossly 4+/5 throughout - Goals Goal 1:: I with HEP after 1 visit Goal Time Frame: 2-4 Weeks Goal 2:: Decrease L shoulder pain x 50% to aid with IADL's Goal Time Frame: 2-4 Weeks - Rehabilitation Potential Physical Therapy Diagnosis: Pt has intermittent L clavicle pain secondary to L clavicle Fx Rehabilitation Potential: Excellent - Anticipated Interventions Patient/Client Instruction: Educate patient on: Condition, Plan of Care For the Purpose of:: To improve self management Therapeutic Exercise to Include: Strength training, Passive ROM, Active ROM, Scapular Strength/Stabilization For the Purpose of:: To decrease pain, To improve muscle performance and motor function Cryotherapy (ice pack, ice massage): Yes For the Purpose of:: To decrease pain, To increase ROM, To improve muscle perf ormance and motor function Thank you for the opportunity to evaluate your patient. For Medicare and Medicare HMO plans, please review the plan of care and approve it. It will need to be FAXED BACK to us at [phone] for Medicare purposes. For Medicare only, by signing this I certify the plan of care. Please let me know if there are questions or concerns regarding this plan of care. Physician Signature: Date:
--- NOTE | 2023-03-18 09:22 | HP.PT.NRP ---
CAROLYN RAYMUNDO was seen in my office for initial evaluation on 11/25/22. The following Plan of Care was established for this patient: Initial Frequency: 1x/Week Initial Duration: 2 Weeks Patient/Client Instruction: Educate patient on: Condition, Plan of Care For the Purpose of:: To improve self management Therapeutic Exercise to Include: Strength training, Passive ROM, Active ROM, Scapular Strength/Stabilization For the Purpose of:: To decrease pain, To improve muscle performance and motor function Cryotherapy (ice pack, ice massage): Yes For the Purpose of:: To decrease pain, To increase ROM, To improve muscle performance and motor function This patient was last seen in our office . Pertinent comments regarding their Physical therapy will appear below: Pt was evaluated for L clavicle pain on the date of 11/25/22. Pt has not returned through todays date and is discontinued at this time. At this point I will be discontinuing this patient from physical therapy. I would be happy to see this patient again in the future if found appropriate by the physician. Thank you! Subhash Zavala, PT, ATC
== END 2022-11-25 19:00 | disposition home or self-care (01) ==
LOC: PT 16:36
PROVIDERS: PCP Internal Medicine; Referring Provider Orthopaedic Surgery Sports Medicine; Visit Provider Orthopaedic Surgery Sports Medicine
DX: S42.009D Fracture of unspecified part of unspecified clavicle, subsequent encounter for fracture with routine healing (principal)
CPT/HCPCS: 97110; 97161

== ENCOUNTER 2023-03-05 07:35 | Emergency (ER) | payer MEDICARE, SELFPAY ==
[2023-03-05 07:36] VITALS: BP 160/77; PULSE 93; RESP 18; TEMP 35.7; O2SAT 97; BMI 32.1
--- NOTE | 2023-03-05 07:56 | EX.ED.DYSGE1 ---
HPI History of Present Illness Chief Complaint: General Illness Informant: patient and family Narrative Narrative: Patient here with daughter evaluation increasing cough for 3 days. Last evening fevers and chills. Today coughing causing clear vomiting. Denies current nausea. Denies urinary symptoms of dysuria or frequency. States chronic urinary issues at baseline. Denies myalgias. Denies history of asthma or COPD. Sick contacts at home with grandchildren with upper respiratory symptoms. Denies tobacco history. Had COVID back in 2020 no hospitalizations. Vaccinated with 1 booster. Prior similar symptoms: Yes PFSH PFSH Medical History Cholecystitis Colitis COVID-19 GERD (gastroesophageal reflux disease) GERD (gastroesophageal reflux disease) H/O emotional problems Incontinence in female Interstitial cystitis Irregular heart rate Kidney disease Personal history of colonic polyps Uterovaginal prolapse, complete UTI (urinary tract infection) Wears glasses Home Medications Lactobacillus Acidophilus 1 cap PO QODAY 08/18/16 [History Last Taken 08/18/16] citalopram 20 mg tablet 20 mg PO DAILY 08/18/16 [History Last Taken 08/18/16] trazodone 50 mg tablet 50 mg PO QHS 08/18/16 [History Last Taken 08/17/16] hydrocodone-acetaminophen 5-325mg 5mg-325mg 1 tab PO Q6H PRN pain 3 days #12 tabs 11/11/22 [Rx Last Taken Unknown] ergocalciferol (vitamin D2) 1,250 mcg (50,000 unit) capsule 1,250 mcg PO 11/18/22 [History Last Taken Unknown] famotidine 20 mg tablet 20 mg PO 11/18/22 [History Last Taken Unknown] mirabegron 50 mg tablet,extended release 24 hr (Myrbetriq) 50 mg PO 11/18/22 [History Last Taken Unknown] Allergy/AdvReac Type Severity Reaction Status Date / Time ibuprofen Allergy Rash Verified 03/05/23 07:39 Penicillins Allergy Rash Verified 03/05/23 07:39 Family History Mother Depression Arthritis Grandmother Depression Brother Depression Diabetes Surgical History History of bilateral cataract extraction History of cholecystectomy History of colonoscopy History of hernia repair History of tubal ligation Social History Smoking Status: Former smoker alcohol intake: never substance use type: does not use what type of physical activity do you participate in: other details: Water Aerobics ROS ROS ED Constitutional Constitutional ED: Reports chills and fever(s); Denies sweats Eyes Eyes: Denies change in vision ENT ENT ED: Denies dysphagia or sore throat Cardiovascular Cardiovascular: Denies chest pain, leg edema, palpitations or racing heartbeat Respiratory/Chest Respiratory/Chest: Reports cough; Denies dyspnea or dyspnea on exertion Gastrointestinal Gastrointestinal: Reports vomiting; Denies abdominal pain, diarrhea or nausea Genitourinary Genitourinary ED: Denies dysuria, hematuria or urinary frequency Musculoskeletal Musculoskeletal: Denies back pain, extremity pain or neck pain Integumentary Denies rash or wounds Neurologic Neurologic: Denies headache(s), paresthesias or weakness EXAM Physical Exam Const Vital Signs: 03/05/23 07:36 03/05/23 07:52 03/05/23 07:57 Temperature 96.3 F L 96.3 F L Temperature Source Temporal Oral Pulse Rate 93 93 Respiratory Rate 18 18 Respiratory Effort Normal Non-Labored Respiratory Pattern Normal Blood Pressure 160/77 H 160/77 H Blood Pressure Mean 104 104 Pulse Ox 97 97 Oxygen Delivery Method Room Air Room Air 03/05/23 09:26 Temperature Temperature Source Pulse Rate 64 Respiratory Rate 15 Respiratory Effort Respiratory Pattern Blood Pressure 133/87 H Blood Pressure Mean Pulse Ox 97 Oxygen Delivery Method Positive well nourished and well developed Constitutional Narrative: Nontoxic, no respiratory distress General Appearance ED: well developed and NAD HEENT Reports TM's clear and moist mucous membranes normocephalic and atraumatic Tympanic Membrane ED: Yes TM's clear Eyes PERRL, EOMs intact bilaterally and conjunctivae normal General Eye ED: Yes normal appearance of both eyes Neck no lymphadenopathy and supple General: Negative for tenderness Chest Wall Chest: Negative for tenderness Resp normal respiratory effort Resp Narrative: Coarse breath sounds while coughing, no rales or wheezing Effort and Inspection: symmetric chest movement; Negative for respiratory distress Cardio regular rate, regular rhythm and no murmurs Peripheral Pulses: pulses 2+ throughout GI normal to inspection, nondistended, normoactive bowel sounds and non-tender Palpation: Negative for guarding or rebound tenderness present Back/Spine no CVA tenderness and no thoracic nor lumbar tenderness Extremity normal to inspection General Extremety ED: Negative for edema or tenderness General Extremity: Negative for edema Neuro oriented x3 and no sensory deficits noted Sensorium / Orientation: awake and alert Skin no rashes or lesions noted and no wounds MDM MDM MDM Narrative Medical decision making narrative: Interventions / MDM: Differential diagnosis: Viral illness, COVID, influenza, pneumonia Diagnosis considered but do not suspect: N/A My EKG interpretation: N/A Imaging independently reviewed and interpreted by myself: 2 view chest x-ray: No infiltrates also read by radiology External documents reviewed: N/A Test considered but not ordered:N/A ED course: Vital stable nontoxic no respiratory distress. COVID influenza negative chest x-ray negative. Discussed viral syndrome with patient and daughter. Discussed adjunct treatments for her cough symptoms. Reporting occasional wheezing at home. Inhaler prescribed to use as needed. No indication for steroids or antibiotics without COPD history of any asthma history. I discussed viral syndrome, return precaution discussed. Discussed if fevers persist and returns to the reevaluate by healthcare provider. All questions were answered. Re-evaluation: stable Disposition discussed with patient/family/significant other: Patient and daughter Case discussed with consulting clinician: N/A Radiography Diagnostic Testing: Clinical Impression(s) from Imaging Studies Chest X-Ray 03/05/23 08:00 IMPRESSION: Mild left lower lobe fibrosis. Borderline cardiomegaly. Atherosclerotic vascular calcification aortic arch with mildly tortuous descending aorta. Degenerative changes mid and lower thoracic spine. Electronically Signed: Saeed Harris MD, LEILANI at 8:27 EDT , Discharge Plan Triage Chief Complaint: General Illness ED Provider: Bertin Richmond Dx/Rx/DC Orders Clinical Impression: Acute viral bronchitis, Cough Instructions: ED Bronchitis, No Antibiotic (Adult) Prescriptions: No Action famotidine 20 mg tablet 20 mg PO ergocalciferol (vitamin D2) 1,250 mcg (50,000 unit) capsule 1,250 mcg PO Myrbetriq 50 mg tablet extended release 24 hr 50 mg PO trazodone 50 MG tablet 50 mg PO QHS Label Comments: sleep citalopram 20 MG tablet 20 mg PO DAILY Label Comments: anxiety Lactobacillus Acidophilus 1 cap PO QODAY Label Comments: probiotic hydrocodone-acetaminophen 5-325 mg tablet 1 tab PO Q6H PRN (Reason: pain) 3 Days Qty: 12 0RF Primary Care Provider: She Lazar Referrals: She Lazar MD [Primary Care Provider] - 1-2 Weeks Activity Restrictions/Additional Instructions: COVID and influenza negative. Chest x-ray negative. Inhaler as needed. Return if worsening symptoms. Disposition Disposition: Home, Self Care Discharge Date/Time: 03/05/23 09:32
[2023-03-05 07:57] VITALS: BP 160/77; PULSE 93; RESP 18; TEMP 35.7; O2SAT 97
--- NOTE | 2023-03-05 08:00 | RAD_ITS ---
INDICATION: cough EXAMINATION/TECHNIQUE: X-RAY - XR Chest 2 Views COMPARISON: None. FINDINGS: LINES/DEVICES: None. LUNGS: Mild left lower lobe atelectasis or fibrosis. MEDIASTINUM AND CARDIOVASCULAR STRUCTURES: Borderline cardiomegaly. Mild tortuosity of the descending aorta. Atherosclerotic vascular calcification of the aortic arch. BONES AND SOFT TISSUES: Moderate degenerative disc disease mid and lower thoracic spine. RAD/Chest PA and Lateral IMPRESSION: Mild left lower lobe fibrosis. Borderline cardiomegaly. Atherosclerotic vascular calcification aortic arch with mildly tortuous descending aorta. Degenerative changes mid and lower thoracic spine. Electronically Signed: Saeed Harris MD, LEILANI at 8:27 EDT Reading Location ID and State: [facility] / [place] Tel , Service support ,
[2023-03-05 09:26] VITALS: BP 133/87; PULSE 64; RESP 15; O2SAT 97
[2023-03-05] MEDS: Albuterol Sulfate 8 gm Inhaler (60 puffs) 1 PUFF INHALATION (09:27)
== END 2023-03-05 09:32 | disposition home or self-care (01) ==
PROVIDERS: Emergency Provider Emergency Medicine; PCP Internal Medicine; Visit Provider Emergency Medicine
DX: J20.9 Acute bronchitis, unspecified (principal); Z20.822 Contact with and (suspected) exposure to COVID-19; Z79.899 Other long term (current) drug therapy; Z87.891 Personal history of nicotine dependence; Z86.16 Personal history of COVID-19
CPT/HCPCS: 71046; 87428; 99282

== ENCOUNTER 2023-10-13 10:06 | Emergency (ER) | payer MEDICARE, SELFPAY ==
[2023-10-13 10:07] VITALS: BP 109/60; PULSE 80; RESP 16; TEMP 36.6; O2SAT 98; BMI 29.0
--- NOTE | 2023-10-13 10:21 | EDS_ITS ---
HPI HPI - Fall History of Present Illness Chief Complaint: Fall Narrative Narrative: 88-year-old female presents with her daughter because of a fall that happened earlier this morning. They state that she was diagnosed with a UTI and has had 1 to 2 days of antibiotics. She had gone to the urgent care. This morning, around 230, she got up to go to the bathroom. This was 8 hours ago. However, she does not remember falling and is unsure if she passed out but awoke on the floor around 5-5 30. She lives at home independently but her son is staying with her. He heard her call for help. She thinks she had been on the floor for approximately 3 hours. She denies any prodromal chest pain or shortness of breath, but complains of pain in her bilateral buttocks towards the hip areas. She has been able to ambulate, however. Her daughter states that today her urine was dark. Patient denies any fevers or chills, no other symptoms. PFSH PFS Medical History Cholecystitis Colitis COVID-19 GERD (gastroesophageal reflux disease) GERD (gastroesophageal reflux disease) H/O emotional problems Incontinence in female Interstitial cystitis Irregular heart rate Kidney disease Personal history of colonic polyps Uterovaginal prolapse, complete UTI (urinary tract infection) Wears glasses Home Medications Lactobacillus Acidophilus 1 cap PO QODAY 08/18/16 [History Last Taken 08/18/16] citalopram 20 mg tablet 20 mg PO DAILY 08/18/16 [History Last Taken 08/18/16] trazodone 50 mg tablet 50 mg PO QHS 08/18/16 [History Last Taken 08/17/16] hydrocodone-acetaminophen 5-325mg 5mg-325mg 1 tab PO Q6H PRN pain 3 days #12 tabs 11/11/22 [Rx Last Taken Unknown] ergocalciferol (vitamin D2) 1,250 mcg (50,000 unit) capsule 1,250 mcg PO 11/18/22 [History Last Taken Unknown] famotidine 20 mg tablet 20 mg PO 11/18/22 [History Last Taken Unknown] mirabegron 50 mg tablet,extended release 24 hr (Myrbetriq) 50 mg PO 11/18/22 [History Last Taken Unknown] Allergy/AdvReac Type Severity Reaction Status Date / Time ibuprofen Allergy Rash Verified 10/13/23 10:06 Penicillins Allergy Rash Verified 10/13/23 10:06 Family History Mother Depression Arthritis Grandmother Depression Brother Depression Diabetes Surgical History History of bilateral cataract extraction History of cholecystectomy History of colonoscopy History of hernia repair History of tubal ligation Social History Smoking Status: Former smoker alcohol intake: never substance use type: does not use what type of physical activity do you participate in: other details: Water Aerobics ROS ROS ED ROS Narrative Constitutional: No fever, no chills. HEENT: No sore throat. No neck pain. No loss of vision. No rhinorrhea. Cardiovascular: No chest pain. No palpitations. No pedal edema. Respiratory: No cough, no shortness of breath. Abdominal: No abdominal pain. No nausea. No vomiting. Genitourinary: No dysuria. No hematuria. However, dark urine today. Being treated for UTI. Musculoskeletal: No myalgias. Bilateral hip and buttocks pain. Neurologic: No headaches. No dizziness. No lightheadedness. Skin: No rash. No change in color. Psychiatric: No depression. No anxiety. EXAM Physical Exam Narrative Exam Narrative: Afebrile. Vital signs noted. HEENT: Normocephalic. Atraumatic. PERRL, EOMI. Neck soft and supple. No point tenderness or step off. Cardiovascular: Regular rate and rhythm. No murmurs, rubs, or gallops appreciated. Respiratory: No tachypnea. Lungs clear to auscultation bilaterally. Gastrointestinal: Abdomen soft, nontender, with normoactive bowel sounds. No re bound or guarding. Neurological: Awake. Alert. Nonfocal, nonlateralizing. Skin: No rash. Normal color. No pallor. Musculoskeletal: No pedal edema. Full range of motion extremities. Pelvis stable. No pain with logrolling of bilateral femurs. Neurovascular intact distally with flexion and extension of hips and knees bilaterally intact. Const Vital Signs: 10/13/23 10:07 Temperature 98 F Temperature Source Temporal Pulse Rate 80 Respiratory Rate 16 Blood Pressure 109/60 Blood Pressure Mean 76 Pulse Ox 98 Oxygen Delivery Method Room Air MDM MDM MDM Narrative Medical decision making narrative: Concern would be for pelvic fracture versus hip fracture. I am unsure as to if the patient had a syncopal episode versus fall. Patient will be bolused normal saline, and her urinalysis rechecked. I will check a basic metabolic panel to look for dehydration or acute kidney injury, and also obtain a CBC. Given her dark urine, even though she was only reported on the floor for 3 hours, I will obtain a CPK to rule out rhabdomyolysis. I reviewed her laboratory work and she has normal white count of 9.6, hemoglobin stable 11.6, platelet count normal at 181, sodium slightly low at 132 with chloride low at 97 consistent with mild dehydration. She has a BUN of 16 and slightly elevated creatinine of 1.33 as well. She was bolused normal saline for her dehydration. Urinalysis was obtained and she has 0-5 white cells and rare bacteria. It was recommended that she continue her antibiotics that she is already taking. X-rays of the hips bilaterally and pelvis and 3 views obtained and interpreted by myself independently shows no evidence of an acute fracture or dislocation. I reviewed the radiology report which confirms my independent interpretation. At this point in time, as her CPK is also negative in review, I feel she can be discharged safely home with follow-up. I do not feel she requires observation or admission. They have a follow-up appointment with her primary care provider on Tuesday next week, approximately 6 days from now. Return instructions to the emergency department were reviewed. Disposition is discharged home in stable condition. History & Record Review Discussion w/independent historian: Patient and Family Additional record(s) reviewed:: Prior ED visit and Prior labs Lab Data Attestation: I reviewed the patient's lab results. Labs: Laboratory Results - last 24 hr 10/13/23 10/13/23 10:27 10:37 WBC 9.6 RBC 3.85 L Hgb 11.6 L Hct 34.9 L MCV 90.6 MCH 30.1 MCHC 33.2 RDW Std Deviation 41.8 RDW Coeff of [place] 12.6 Plt Count 181 MPV 9.0 Immature Gran % (Auto) 0.500 Neut % (Auto) 91.2 H Lymph % (Auto) 2.2 L [place] % (Auto) 5.9 Eos % (Auto) 0.0 Baso % (Auto) 0.2 Absolute Neuts (auto) 8.8 H Absolute Lymphs (auto) 0.21 L Nucleated RBC % 0 Differential Comment SCANNED Sodium 132 L Potassium 3.5 Chloride 97 L Carbon Dioxide 26.0 Anion Gap 9 BUN 16 Creatinine 1.33 H Estim Creat Clear Calc 21.81 Est GFR (MDRD) Af Amer 49 L Est GFR (MDRD) Non-Af 40 L BUN/Creatinine Ratio 12.0 Glucose 140 H Calcium 8.8 Total Creatine Kinase 127 Urine Color Yellow Urine Clarity Clear Urine pH 6.0 Ur Specific [place] 1.015 Urine Protein 30 H Urine Glucose (UA) Normal Urine Ketones 50 H Urine Occult Blood 10 H Urine Nitrite Negative Urine Bilirubin Negative Urine Urobilinogen Normal Ur Leukocyte Esterase 25 H Urine RBC 0 SEEN Urine WBC 0-5 SEEN Ur Squamous Epith Cells 0-5 SEEN Urine Bacteria RARE Urine Mucus 0 SEEN Radiography Diagnostic Testing: Clinical Impression(s) from Imaging Studies Hip/Pelvis X-Ray 10/13/23 10:50 IMPRESSION: No evidence of displaced pelvic or hip fracture. Electronically Signed: Chapo Hayden MD at 11:15 EST , Discharge Plan Triage Chief Complaint: Fall ED Provider: Reji Ramos Dx/Rx/DC Orders Clinical Impression: History of UTI, Fall, Bilateral hip pain, Hyponatremia Instructions: ED Fall with Uncertain Cause, ED Hip Contusion, ED Hyponatremia, ED Pain, Acute, Uncertain Cause, ED Fall Prevention Prescriptions: No Action famotidine 20 mg tablet 20 mg PO ergocalciferol (vitamin D2) 1,250 mcg (50,000 unit) capsule 1,250 mcg PO Myrbetriq 50 mg tablet extended release 24 hr 50 mg PO trazodone 50 MG tablet 50 mg PO QHS Patient Comments: sleep citalopram 20 MG tablet 20 mg PO DAILY Patient Comments: anxiety Lactobacillus Acidophilus 1 cap PO QODAY Patient Comments: probiotic hydrocodone-acetaminophen 5-325 mg tablet 1 tab PO Q6H PRN (Reason: pain) 3 Days Qty: 12 0RF Primary Care Provider: She Lazar Referrals: She Lazar MD [Primary Care Provider] - Keep Christine appointment Disposition Disposition: Home, Self Care
[2023-10-13 10:31] LABS: Mucous, Urine 0 SEEN /hpf (<or=2+); Red Blood Cells-Urine 0 SEEN /hpf (0-5)
[2023-10-13 10:33] LABS: Color, Urine Yellow (Yellow); Glucose, Dipstick Normal (Normal); Ketone-Dipstick 50 mg/dl (Negative); Leukocyte Esterase-Dipstick 25 /ul (Negative); Nitrite-Dipstick Negative (Negative); Occult Blood-Urine 10 /ul (Negative); Protein-Dipstick 30 mg/dl (Negative); Specific Gravity, Urine 1.015 (1.002-1.030); Urine Bilirubin Dipstick Negative (Negative); Urine Clarity Clear (Clear); Urine Urobilinogen Normal (Normal)
[2023-10-13] MEDS: 0.9% Normal Saline (1000mL) 1,000 ML 999 ML IV (10:36)
[2023-10-13 10:39] LABS: Bacteria RARE /hpf (None Seen); Squamous Epithelial Cells - UA 0-5 SEEN /hpf (5-10); White Blood Cells 0-5 SEEN /hpf (0-5)
[2023-10-13 10:46] LABS: Absolute Lymphocyte Count 0.21 X10^3/uL (0.83-4.51); Absolute Neutrophil Count 8.8 X10^3/uL (2.0-7.7); Basophil# 0.02 X10^3/uL; Basophil% 0.2 % (0-1); Hematocrit 34.9 % (37-47); Hemoglobin 11.6 g/dL (12.0-15.0); Lymphocyte # 0.21 X10^3/ul (0.83-4.51); Lymphocyte % 2.2 % (19-41); Mean Corp Hgb Conc 33.2 g/dL (32-36); Mean Corpuscular Hgb 30.1 pg (27.0-32.0); Mean Corpuscular Volume 90.6 fL (81-99); Monocyte# 0.57 X10^3/uL; Monocyte% 5.9 % (0-10); NRBC Flagged by Analyzer 0 % (0-5); Neutrophil # 8.76 X10^3/uL (2.7-7.7); Neutrophil % 91.2 % (47-70); POSITIVE DIFFERENTIAL YES; Platelet Count 181 K/mm3 (150-450); RBC Distribution Width CV 12.6 % (11.6-14.6); RBC Distribution Width SD 41.8 fl (35.1-43.9); Red Blood Count 3.85 M/mm3 (4.2-5.4); White Blood Count 9.6 K/mm3 (4.4-11.0)
--- NOTE | 2023-10-13 10:50 | RAD_ITS ---
INDICATION: Bilateral hip pain following a fall. EXAMINATION/TECHNIQUE: X-RAY - XR Hips Bilateral with Pelvis when performed; 2 Views COMPARISON: No relevant prior comparison study available FINDINGS: PELVIC BONES: No displaced fracture, destructive or sclerotic lesions. Note that overlapping bowel shadows may however obscure fine detail. Sacroiliac joints are unremarkable. No widening of the pubic symphysis. HIPS: Mild degree of bilateral hip joint narrowing. No displaced fracture seen in this frontal view. SOFT TISSUES: No soft tissue swelling or gas. RAD/Hips B/L min 2 views w/ Pelvis IMPRESSION: No evidence of displaced pelvic or hip fracture. Electronically Signed: Chapo Hayden MD at 11:15 EST ,
[2023-10-13 10:52] LABS: Differential Indicated SCAN CRITERIA MET
[2023-10-13 11:03] LABS: Anion Gap 9 (5-15); BUN 16 mg/dL (7-18); CPK Total, Creatine Kinase 127 U/L (26-192); Calcium,Total 8.8 mg/dL (8.5-10.1); Chloride 97 mmol/L (98-107); Creatinine, Serum 1.33 mg/dL (0.55-1.02); EST Glomerular Filtration Rate 40 mL/min (>60); Est Glom Filt Rate - Afr Amer 49 mL/min (>60); Estimated Creatinine Clearance 21.81 ml/min; Glucose 140 mg/dL (74-106); Potassium 3.5 mmol/L (3.5-5.1); Sodium Level 132 mmol/L (136-145)
[2023-10-13 11:12] LABS: Differential Comment SCANNED
== END 2023-10-13 13:01 | disposition home or self-care (01) ==
PROVIDERS: Emergency Provider Emergency Medicine; PCP Internal Medicine; Visit Provider Emergency Medicine
DX: N39.0 Urinary tract infection, site not specified (principal); E86.0 Dehydration; M25.551 Pain in right hip; M25.552 Pain in left hip; E87.1 Hypo-osmolality and hyponatremia; Z79.899 Other long term (current) drug therapy; Z87.891 Personal history of nicotine dependence
CPT/HCPCS: 73521; 80048; 81001; 82550; 85025; 96360; 99283; J7030

== ENCOUNTER 2024-08-29 12:25 | Emergency (ER) | payer MEDICARE, SELFPAY ==
[2024-08-29 12:26] VITALS: BP 166/67; PULSE 68; RESP 16; TEMP 36.7; O2SAT 98; BMI 30.9
--- NOTE | 2024-08-29 12:28 | EKG12_ITS ---
Test Reason : DIZZINESS Blood Pressure : / mmHG Vent. Rate : 061 BPM Atrial Rate : 061 BPM P-R Int : 136 ms QRS Dur : 114 ms QT Int : 454 ms P-R-T Axes : 046 -18 109 degrees QTc Int : 457 ms Normal sinus rhythm Incomplete left bundle branch block ST & T wave abnormality, consider anterolateral ischemia , non specific Abnormal ECG Confirmed by BETTY CARRILLO, CODEY ([id number]), field map editor RAHEEL BRUNNER ([id number]) on 09/04/2024 11:31:37 AM Referred By: Confirmed By:CODEY HERNÁNDEZ MD
[2024-08-29 12:29] VITALS: BP 166/67; PULSE 68; RESP 16; O2SAT 98
[2024-08-29 13:01] LABS: Absolute Lymphocyte Count 1.11 X10^3/uL (0.83-4.51); Absolute Neutrophil Count 3.1 X10^3/uL (2.0-7.7); Basophil# 0.05 X10^3/uL; Eosinophil# 0.17 X10^3/uL; Eosinophils% 3.5 % (0-5); Hematocrit 42.3 % (37-47); Lymphocyte # 1.11 X10^3/ul (0.83-4.51); Lymphocyte % 22.8 % (19-41); Mean Corp Hgb Conc 33.1 g/dL (32-36); Mean Corpuscular Volume 90.6 fL (81-99); Mean Platelet Vol. 8.8 fl (6.2-12.0); Monocyte% 8.2 % (0-10); NRBC Flagged by Analyzer 0 % (0-5); Neutrophil # 3.12 X10^3/uL (2.7-7.7); Neutrophil % 64.3 % (47-70); Platelet Count 170 K/mm3 (150-450); RBC Distribution Width CV 12.4 % (11.6-14.6); RBC Distribution Width SD 41.1 fl (35.1-43.9); Red Blood Count 4.67 M/mm3 (4.2-5.4); White Blood Count 4.9 K/mm3 (4.4-11.0)
[2024-08-29 13:11] LABS: International Normalized Ratio 1.1; Prothrombin Time (Protime)PT. 13.7 SECONDS (11.7-14.9)
[2024-08-29 13:15] LABS: Anion Gap 6 (5-15); BUN 12 mg/dL (7-18); BUN/Creat Ratio 11.2 RATIO (10-20); Calcium,Total 9.5 mg/dL (8.5-10.1); Chloride 102 mmol/L (98-107); Creatinine, Serum 1.07 mg/dL (0.55-1.02); EST Glomerular Filtration Rate 52 mL/min (>60); Est Glom Filt Rate - Afr Amer 62 mL/min (>60); Estimated Creatinine Clearance 32.81 ml/min; Glucose 140 mg/dL (74-106); Sodium Level 134 mmol/L (136-145)
--- NOTE | 2024-08-29 13:35 | RAD_ITS ---
STUDY: X-RAY CHEST REASON FOR EXAM: Female, 89 years old. Stroke TECHNIQUE: Single AP portable view of the chest. COMPARISON: Comparison is made with prior study of March 05, 2023. FINDINGS: The lungs are clear and expanded. Scattered calcified granulomas. There is no demonstrated pleural abnormality. There is borderline cardiomegaly. Normal mediastinum and anca. Normal visualized pulmonary arteries. There is atherosclerotic calcification of the aortic arch with tortuosity. There are diffuse degenerative changes of the visualized thoracic spine. Mild dextroscoliosis. Normal visualized ribs, clavicles, and shoulders. There is no demonstrated abnormality of the visualized soft tissue structures of the upper abdomen. RAD/Chest 1 View (Portable) IMPRESSION: No acute abnormality is seen. Electronically Signed: Chapo Hayden MD at 13:47 EDT ,
[2024-08-29 14:00] VITALS: O2SAT 97
--- NOTE | 2024-08-29 14:07 | EDS_ITS ---
HPI History of Present Illness Chief Complaint: Dizziness PFSH PFSH Medical History Cholecystitis Colitis COVID-19 GERD (gastroesophageal reflux disease) GERD (gastroesophageal reflux disease) H/O emotional problems Incontinence in female Interstitial cystitis Irregular heart rate Kidney disease Personal history of colonic polyps Uterovaginal prolapse, complete UTI (urinary tract infection) Wears glasses Home Medications ?Medication ?Instructions ?Recorded ?Last Taken ?Type citalopram 20 mg tablet 20 mg PO DAILY 08/18/16 08/18/16 History ergocalciferol (vitamin D2) 1,250 1,250 mcg PO DAILY 11/18/22 Unknown History mcg (50,000 unit) capsule mirabegron 50 mg tablet,extended 50 mg PO Q24H 11/18/22 Unknown History release 24 hr (Myrbetriq) escitalopram oxalate 10 mg tablet 10 mg PO DAILY 08/29/24 Unknown History melatonin 3 mg tablet 3 mg PO QHS 08/29/24 Unknown History trazodone 150 mg tablet 150 mg PO DAILY 08/29/24 Unknown History Allergy/AdvReac Type Severity Reaction Status Date / Time ibuprofen Allergy Rash Verified 08/29/24 12:26 Penicillins Allergy Rash Verified 08/29/24 12:26 Family History Mother Depression Arthritis Grandmother Depression Brother Depression Diabetes Surgical History History of bilateral cataract extraction History of cholecystectomy History of colonoscopy History of hernia repair History of tubal ligation Social History Smoking Status: Former smoker alcohol intake: never substance use type: does not use what type of physical activity do you participate in: other details: Water Aerobics EXAM Physical Exam Const Vital Signs: 08/29/24 12:26 08/29/24 12:29 08/29/24 14:00 Temperature 98.0 F Temperature Source Temporal Pulse Rate 68 68 Respiratory Rate 16 16 Blood Pressure 166/67 H 166/67 H Blood Pressure Mean 100 100 Pulse Ox 98 98 97 Oxygen Delivery Method Room Air Room Air Room Air 08/29/24 16:00 08/29/24 17:19 Temperature 98.0 F Temperature Source Pulse Rate 60 60 Respiratory Rate 15 15 Blood Pressure 110/52 L 110/52 L Blood Pressure Mean 71 71 Pulse Ox 97 Oxygen Delivery Method Room Air [facility] [place] Medical decision making narrative: HISTORY OF PRESENT ILLNESS: 89-year-old female history of GERD, chronic pain, uterine prolapse presents with dizziness. The patient states she was at urgent care. She notes she told them that she was dizzy and felt off today. Urgent care noted blood pressure was high urgent care recommended she presents emergency department for further evaluation. The patient further states she had transient symptoms of difficulty with balance, dizziness when her blood pressure is elevated at home. She denies any symptoms at this time. Denies any falls or recent head trauma. Denies any bleeding diathesis. Denies any diarrhea or vomiting. Denies any chest pain or palpitations. Denies any abdominal pain or focal weakness numbness or loss of sensation. REVIEW OF SYSTEMS: Pertinent positives: Dizziness Pertinent negatives: Chest pain, abdominal pain, bleeding diathesis, diarrhea PHYSICAL EXAM: Nursing triage notes reviewed, Vital signs reviewed Constitutional: please see mdm HENT: MMM Eyes: Pupils equal round and reactive to light, Extraocular muscles intact Neck: No stridor, no JVD, full neck ROM Lungs: Clear to auscultation, No wheezing or rales. No increased work of breathing, no conversational dyspnea, no accessory muscle use, no nasal flaring. No respiratory distress noted Heart: Regular rate and rhythm, No murmurs, No rubs and No gallops, 2+ distal pulses (radial, femoral, posterior tibial) in all extremities Abdomen: Soft, there is no tenderness, rigidity, rebound or guarding, no obvious peritoneal signs, no palpable pulsatile abdominal masses, no auscultated abdominal bruit : No CVAT Extremities: No edema Neuro: Alert and oriented x3, neuro exam at baseline, cranial nerves II through XII are intact. No pain with extraocular muscle movement. There is negative test of skew. 5 of 5 strength in upper and lower extremities in flexion extension. Intact sensation to light touch in upper and lower extremity dermatomes. No truncal or extremity ataxia. No dysdiadochokinesia. 2+ reflexes in upper and lower extremities. No meningeal signs. Negative Babinski. NIH of 0. Skin: No rash or lesions noted MEDICAL DECISION MAKING: Chief Complaint: Dizziness, elevated blood pressure External records reviewed: Reviewed prior imaging studies: Reviewed prior CT scan of the brain. Factors affecting care: none Social determinants of health: none History obtained from others: none Consults: Radiology MDM Narrative: The patient was hemodynamically stable, afebrile and nontoxic-appearing. Exam patient was initially hemodynamically stable, afebrile and nontoxic-appearing. She had no signs of posterior circulation CVA with no extremity, truncal or gait ataxia. Negative hints exam. I considered the following differential diagnosis: posterior circulation CVA,ICH, pneumonia, ACS, arrhythmia, anemia, heart failure, UTI I obtained a broad lab and imaging workup to further elucidate etiology of the patient's complaints. T protocol labs were placed in the patient in triage secondary to adverse department conditions including high volume and high acuity. CBC, PT/INR, BMP, PTT, chest x-ray and EKG were placed in triage as well as 1 L normal saline at 50 mL/h ALL IMAGES (IF OBTAINED) HAVE BEEN PERSONALLY REVIEWED AND INTERPRETED BY MYSELF. CBC with no leukocytosis, no anemia or thrombocytopenia No coagulopathy BMP with mild hyponatremia, no evidence of severe electrolyte abnormalities, endorgan hypoperfusion or metabolic acidosis, no evidence of acute kidney injury EKG with normal sinus rhythm, left axis deviation, normal intervals, no obvious STEMI, I have personally reviewed the patient's chest x-ray. Chest x-ray is unremarkable for pulmonary edema, pneumothorax, pneumonia or focal cardiopulmonary abnormality. I added troponin, CT scan of the head without contrast as well as a CTA of the head neck High-sensitivity troponin is negative, no evidence of myocardial ischemia CTA, CT of the head were negative for acute intracranial normalities Upon reassessment, repeat neurologic exam the patient remained neuro intact, gait remained stable. She is appropriate for discharge home. The etiology of her transient bowel difficulty is unclear at this time. There is no clinical or imaging evidence to suggest posterior circulation CVA. She did report having elevated blood pressure which may have been the precipitating cause. Blood pressure improved (from 166/67 to 110/52) without intervention and her symptoms improved as well. I considered and offered admission for possible MRI and risk factor modification for TIA however patient and family did feel this was necessary as she was symptomatically improved. They agreed to follow with her primary care physician and obtain additional evaluation as an outpatient. The patient and/or family, caregivers express understanding. The patient and/or family, caregivers agrees with the plan. Shared decision making: I will have a discussion with the patient and or visitors regarding risk/benefits of further testing or admission. They will be made aware of of the risk/benefits inherent in this decision they will be given the opportunity to voice understanding. Total critical care time today provided was at least 0 minutes. This excludes separately billable procedures. Critical care time (if documented) is secondary to the patient having high probability of clinically significant/life threatening deterioration in the patient's condition which required my urgent intervention. Impression: 1. Dizziness 2. Elevated blood pressure Dispo: Discharge home This note was generated with [employer] dictation software. It may contain incorrect words, spelling, and punctuation that were not noted in review of the chart prior to signing. Lab Data Labs: Laboratory Results - last 24 hr 08/29/24 12:50 WBC 4.9 RBC 4.67 Hgb 14.0 Hct 42.3 MCV 90.6 MCH 30.0 MCHC 33.1 RDW Std Deviation 41.1 RDW Coeff of [place] 12.4 Plt Count 170 MPV 8.8 Immature Gran % (Auto) 0.200 Neut % (Auto) 64.3 Lymph % (Auto) 22.8 [place] % (Auto) 8.2 Eos % (Auto) 3.5 Baso % (Auto) 1.0 Absolute Neuts (auto) 3.1 Absolute Lymphs (auto) 1.11 Nucleated RBC % 0 PT 13.7 INR 1.1 APTT 26.0 Sodium 134 L Potassium 4.0 Chloride 102 Carbon Dioxide 26.0 Anion Gap 6 BUN 12 Creatinine 1.07 H Estim Creat Clear Calc 32.81 Est GFR (MDRD) Af Amer 62 Est GFR (MDRD) Non-Af 52 L BUN/Creatinine Ratio 11.2 Glucose 140 H Calcium 9.5 Troponin I High Sens 8 Radiography Diagnostic Testing: Clinical Impression(s) from Imaging Studies Chest X-Ray 08/29/24 13:35 IMPRESSION: No acute abnormality is seen. Electronically Signed: Chapo Hayden MD at 13:47 EDT , Head/Neck CTA 08/29/24 14:37 IMPRESSION: Mild degree of calcific plaques at the origin of the internal carotid arteries bilaterally causing less than 50% stenosis. Electronically Signed: Chapo Hayden MD at 15:19 EDT , ADDENDUM: 08/29/24 1657 IMPRESSION: Mild atrophy and periventricular white matter ischemic changes without evidence for acute infarct Electronically Signed: Phani Cole MD at 16:50 EDT , Discharge Plan Triage Chief Complaint: Dizziness ED Provider: Jb Jason Dx/Rx/DC Orders Instructions: ED Dizziness, Uncertain Cause Prescriptions: No Action ergocalciferol (vitamin D2) 1,250 mcg (50,000 unit) capsule 1,250 mcg PO DAILY mirabegron [Myrbetriq] 50 mg tablet extended release 24 hr 50 mg PO Q24H citalopram 20 MG tablet 20 mg PO DAILY Patient Comments: anxiety melatonin 3 mg tablet 3 mg PO QHS trazodone 150 mg tablet 150 mg PO DAILY escitalopram oxalate 10 mg tablet 10 mg PO DAILY Primary Care Provider: She Lazar Referrals: She Lazar MD [Primary Care Provider] - Activity Restrictions/Additional Instructions: Thank you for trusting us with your care today! Please take Tylenol (2 pills, 650 mg), ibuprofen (2 pills, 400 mg) every 6 hours as needed for pain and fever control. Please return to the emergency department if your symptoms change or worsen. Please follow with your primary care physician for further outpatient evaluation and management. Print Language: [place] Disposition Disposition: Home, Self Care Discharge Date/Time: 08/29/24 17:21
--- NOTE | 2024-08-29 14:37 | CT_ITS ---
STUDY: CTA HEAD AND NECK WITH CONTRAST REASON FOR EXAM: Female, 89 years old. dizziness, neck pain r/o carotid a dissection RADIATION DOSAGE (If Supplied By Facility): CTDIvol = ( 24.14 ) mGy, DLP = ( 1418.70 ) mGycm TECHNIQUE: CT angiography was performed with a multi-detector CT scanner. Data acquisition was obtained from the skull base through the vertex following intravenous administration of IV 75mL [id number]. MIP images were reconstructed from the axial data set. Post-processing of the angiographic images was performed, with multiplanar reformation and 3D reconstruction. Individualized dose optimization techniques were used for this CT. COMPARISON: No relevant priors. FINDINGS: Normal bilateral petrous carotid arteries. There is calcified plaque formation of the right cavernous carotid artery, with a mild stenosis (less than 50%). There is calcified plaque formation of the left cavernous carotid artery, with a mild stenosis (less than 50%). There is hypoplastic development of the right A1 segment of the anterior cerebral arteries with an atretic but intact artery. Normal left A1 segments of the anterior cerebral artery. Normal intact anterior communicating artery (ACOM). Normal bilateral A2 segments of the anterior cerebral arteries. Normal right M1 and M2 segments of the middle cerebral arteries, with a normal M1 bifurcation. Normal left M1 and M2 segments of the middle cerebral arteries, with a normal M1 bifurcation. There is a persistent origin of the right posterior cerebral artery with absence of the posterior communicating artery (PCOM). Normal left posterior communicating artery (PCOM). Normal bilateral vertebral arteries. Normal basilar artery with a normal basilar bifurcation. The visualized bilateral superior cerebellar (SCA) arteries are normal. Normal bilateral P1, P2 and visualized P3 segments of the posterior cerebral arteries. There is no demonstrated aneurysm of the [place]. Mild degree of cerebral atrophy. AORTIC ARCH: There is atherosclerotic calcific plaque formation of the aortic arch and great vessels arising from the aortic arch, without a hemodynamically significant stenosis. There is a normal origin of the brachiocephalic, left common carotid, and left subclavian arteries. RIGHT CAROTID ARTERIES: Normal right common carotid artery (CCA). Normal right common carotid bulb. There is mild atherosclerotic plaque formation of the origin of the right internal carotid artery with less than 50% cross sectional diameter stenosis. Normal visualized cervical portion of the right internal carotid artery. Normal origin of the right external carotid artery (ECA). LEFT CAROTID ARTERIES: Normal left common carotid artery (CCA). Normal left common carotid bulb. There is mild atherosclerotic plaque formation of the origin of the left internal carotid artery with less than 50% cross sectional diameter stenosis. Normal visualized cervical portion of the left internal carotid artery. Normal origin of the left external carotid artery (ECA). VERTEBRAL ARTERIES: Normal bilateral vertebral arteries. CT/CTA Head AND Neck W/ Contrast IMPRESSION: Mild degree of calcific plaques at the origin of the internal carotid arteries bilaterally causing less than 50% stenosis. Electronically Signed: Chapo Hayden MD at 15:19 EDT ,
[2024-08-29 15:15] LABS: Troponin-I HS 8 pg/mL (3.0-54.0)
[2024-08-29] MEDS: 0.9% Normal Saline (1000mL) 1,000 ML 50 ML IV (15:21)
[2024-08-29 16:00] VITALS: BP 110/52; PULSE 60; RESP 15
--- NOTE | 2024-08-29 16:44 | ED.RN ---
Patient ambulated to bathroom with assistance
[2024-08-29 17:19] VITALS: BP 110/52; PULSE 60; RESP 15; TEMP 36.7; O2SAT 97
== END 2024-08-29 17:21 | disposition home or self-care (01) ==
PROVIDERS: Emergency Provider Emergency Medicine; PCP Internal Medicine; Visit Provider Emergency Medicine
DX: R42 Dizziness and giddiness (principal); N81.4 Uterovaginal prolapse, unspecified; R03.0 Elevated blood-pressure reading, without diagnosis of hypertension; E87.1 Hypo-osmolality and hyponatremia; G89.29 Other chronic pain; K21.9 Gastro-esophageal reflux disease without esophagitis; Z87.891 Personal history of nicotine dependence; Z79.899 Other long term (current) drug therapy
CPT/HCPCS: 70496; 70498; 71045; 80048; 84484; 85025; 85610; 85730; 93005; 99284; J7030; Q9967; A4216